=== PATIENT | female | born 1940 | race American Indian/Alaskan Native ===

== ENCOUNTER 2019-05-01 12:55 | Inpatient (IN) | payer MEDICARE ==
[2019-05-01] MEDS ORDERED: GENTAMICIN 80 MG in NACL 0.9% 100 ML IV SCH (14:30)
--- NOTE | 2019-05-01 14:30 | Anesthesia Day of Surgery ---
Anesthesia Day of Surgery - Day of Surgery Patient Examined: Yes Patient H&P Reviewed: Yes Patient is NPO: Yes
--- NOTE | 2019-05-01 14:32 | Anesthesia Consultation ---
Anesthesia Consult and Med Hx Date of service: 05/01/19 - Airway Anesthetic Teeth Evaluation: Edentulous ROM Head & Neck: Adequate Mental/Hyoid Distance: Adequate Mallampati Class: Class II Intubation Access Assessment: Probably Good - Pre-Operative Health Status ASA Pre-Surgery Classification: ASA3 Proposed Anesthetic Plan: MAC - Pulmonary Hx Asthma: Yes - Cardiovascular System Hx Hypertension: Yes - Central Nervous System Hx Psychiatric Problems: Yes (Depression/Alzheimers/Dementia) - Endocrine Hx Liver Disease: Yes (Increased AST) - Hematic Hx Anemia: Yes - Additional Comments Anesthesia Medical History Comments: Albumin 2.3. Hypokalemia 2.7 [id number]. Non-ambulatory
[2019-05-01] MEDS ORDERED: NACL 0.9% 1000 ML 1,000 ML IV SCH (15:00)
[2019-05-01] MEDS ORDERED: CLEOCIN 600 MG/50 mL 600 MG/50 ML BAG IV NR (15:00)
[2019-05-01] MEDS ORDERED: GENTAMICIN/NS 100 MG/100 ML 100 MG/100 ML BAG IV NR (15:00)
[2019-05-01 15:56] LABS: Basophils # (Auto) 0.1 K/mm3 (0.0-0.1); Basophils % (Auto) 0.7 % (0.0-1.8); Eosinophils % (Auto) 0.4 % (0.0-4.3); Hematocrit 39.4 % (30.3-42.9); Hemoglobin 12.7 gm/dl (10.1-14.3); Lymphocytes # (Auto) 1.8 K/mm3 (1.2-5.4); Lymphocytes % (Auto) 16.7 % (13.4-35.0); Mean Corpuscular HGB Conc 32 % (30-34); Mean Corpuscular Volume 88 fl (79-97); Monocytes # (Auto) 0.9 K/mm3 (0.0-0.8); Monocytes % (Auto) 8.5 % (0.0-7.3); Platelet Count 239 K/mm3 (140-440); Red Blood Count 4.46 M/mm3 (3.65-5.03); Red Cell Distribution Width 18.2 % (13.2-15.2)
[2019-05-01] MEDS: D5/0.45NS 1,000 ML IV SCH ×2 (15:56→20:05)
[2019-05-01 16:10] LABS: Partial Thromboplastin Time 25.4 Sec. (24.2-36.6)
[2019-05-01 16:34] LABS: INR 1.38 (0.87-1.13)
--- NOTE | 2019-05-01 16:34 | Emergency Department Report ---
ED General Adult HPI - General Chief complaint: Laceration/Recheck/Suture Source: patient Mode of arrival: Stretcher Limitations: No Limitations - History of Present Illness Initial comments: 78-year-old female with a past with a history of vascular dementia, elevated cholesterol, hypertension, asthma, and hyperlipidemia presents to the hospital from the endoscopy lab for hypokalemia and needing PEG tube placement. Patient was sent by custodial for PEG tube placement. Patient had repeat procedure lasted revealing a potassium of 2.7 and sodium 166. Procedure was aborted and patient was sent to the ER for hypokalemia. Patient is nonverbal and does not follow commands and is unable to provide any additional history of present illness. There is a DO NOT RESUSCITATE noted on custodial face sheet however advanced directive paperwork is not included. PEG being placed because pt is not eating. Severity scale (0 -10): 0 - Related Data Allergies Allergy/AdvReac Type Severity Reaction Status Date / Time No Known Allergies Allergy Verified 05/01/19 14:31 ED Review of Systems ROS: Stated complaint: Other details as noted in HPI Comment: All other systems reviewed and negative ED Past Medical Hx - Past Medical History Previous Medical History?: Yes Hx Hypertension: Yes Hx Liver Disease: Yes (Increased AST) Hx Arthritis: Yes (osteoarthritis) Hx Psychiatric Treatment: (MDD) Hx Asthma: Yes Additional medical history: Encephalopathy, High cholesterol, Anemia, Vascular Dementia, Scoliosis - Surgical History Past Surgical History?: No - Social History Smoking Status: Never Smoker Substance Use Type: None ED Physical Exam - General Limitations: No Limitations - Other Other exam information: General: No acute distress Head: Atraumatic Eyes: Normal appearance, Pupils equal and reactive to light, extraocular movements intact ENT: dry mucous membranes Neck: Normal appearance, no posterior or midline tenderness, no meningismus Chest: Clear to auscultation bilaterally, no wheezes, rales, or crackles CV: Regular rate and rhythm Abdomen: soft, normal bowel sounds, nontender, nondistended, no rebound or guarding Back: Nontender Extremity: Normal inspection, full range of motion, nontender Neuro: Alert equal hand special warfare operator and leg strength. sensation grossly intact Skin: No rash, redness, warmth ED Course Vital Signs 05/01/19 05/01/19 13:45 15:07 Temperature 97.6 F 97.6 F Pulse Rate 91 H 91 H Respiratory 20 Rate Blood Pressure 128/75 128/75 O2 Sat by Pulse 98 98 Oximetry ED Medical Decision Making - Lab Data Result diagrams: 05/01/19 15:43 05/01/19 15:43 Lab Results 05/01/19 05/01/19 05/01/19 Range/Units 14:42 15:43 15:43 WBC 10.8 (4.5-11.0) K/mm3 RBC 4.46 (3.65-5.03) M/mm3 Hgb 12.7 (10.1-14.3) gm/dl POC Hgb 12.9 (12-17) Hct 39.4 (30.3-42.9) % POC Hct 38 (38-51) MCV 88 (79-97) fl MCH 29 (28-32) pg MCHC 32 (30-34) % RDW 18.2 H (13.2-15.2) % Plt Count 239 (140-440) K/mm3 Lymph % (Auto) 16.7 (13.4-35.0) % Dare % (Auto) 8.5 H (0.0-7.3) % Eos % (Auto) 0.4 (0.0-4.3) % Baso % (Auto) 0.7 (0.0-1.8) % Lymph # 1.8 (1.2-5.4) K/mm3 Dare # 0.9 H (0.0-0.8) K/mm3 Eos # 0.0 (0.0-0.4) K/mm3 Baso # 0.1 (0.0-0.1) K/mm3 Seg Neutrophils % 73.7 H (40.0-70.0) % Seg Neutrophils # 7.9 H (1.8-7.7) K/mm3 APTT 25.4 (24.2-36.6) Sec. POC Sodium 167 H (138-146) mmol/L POC Potassium 2.7 L (3.5-4.9) POC Chloride 131 H (98-109) Sodium (137-145) mmol/L Potassium (3.6-5.0) mmol/L Chloride (98-107) mmol/L Carbon Dioxide (22-30) mmol/L Anion Gap mmol/L POC BUN 32 H (8-26) mg/dl BUN (7-17) mg/dL Creatinine (0.7-1.2) mg/dL Estimated GFR ml/min BUN/Creatinine Ratio % Glucose (65-100) mg/dL POC Glucose 100 (70-105) Calcium (8.4-10.2) mg/dL Magnesium (1.7-2.3) mg/dL 05/01/19 Range/Units 15:43 WBC (4.5-11.0) K/mm3 RBC (3.65-5.03) M/mm3 Hgb (10.1-14.3) gm/dl POC Hgb (12-17) Hct (30.3-42.9) % POC Hct (38-51) MCV (79-97) fl MCH (28-32) pg MCHC (30-34) % RDW (13.2-15.2) % Plt Count (140-440) K/mm3 Lymph % (Auto) (13.4-35.0) % Dare % (Auto) (0.0-7.3) % Eos % (Auto) (0.0-4.3) % Baso % (Auto) (0.0-1.8) % Lymph # (1.2-5.4) K/mm3 Dare # (0.0-0.8) K/mm3 Eos # (0.0-0.4) K/mm3 Baso # (0.0-0.1) K/mm3 Seg Neutrophils % (40.0-70.0) % Seg Neutrophils # (1.8-7.7) K/mm3 APTT (24.2-36.6) Sec. POC Sodium (138-146) mmol/L POC Potassium (3.5-4.9) POC Chloride (98-109) Sodium 166 H* (137-145) mmol/L Potassium 3.7 (3.6-5.0) mmol/L Chloride 123.2 H (98-107) mmol/L Carbon Dioxide 24 (22-30) mmol/L Anion Gap 23 mmol/L POC BUN (8-26) mg/dl BUN 40 H (7-17) mg/dL Creatinine 1.6 H (0.7-1.2) mg/dL Estimated GFR 38 ml/min BUN/Creatinine Ratio 25 % Glucose 104 H (65-100) mg/dL POC Glucose (70-105) Calcium 9.0 (8.4-10.2) mg/dL Magnesium 2.40 H (1.7-2.3) mg/dL - Medical Decision Making dehydration due to decreased po intake and dementia D1/2 NS ordered for hydration potassium nomral Hospitalist aware for admission - Differential Diagnosis dehydration, electrolyte abnormalities Critical Care Time: No Critical care attestation.: If time is entered above; I have spent that time in minutes in the direct care of this critically ill patient, excluding procedure time. ED Disposition Clinical Impression: Dehydration, Renal insufficiency, Advanced dementia, Encounter for PEG (percutaneous endoscopic gastrostomy) Disposition: OP ADMIT IP TO THIS HOSP Is pt being admited?: Yes Condition: Stable Time of Disposition: 16:39 (Dr bhatia/hosp)
[2019-05-02] MEDS: D5/0.45NS 1,000 ML IV SCH (00:56)
[2019-05-02] MEDS ORDERED: ZOFRAN IV PRN (02:04)
[2019-05-02] MEDS ORDERED: TYLENOL PO PRN (02:04)
[2019-05-02] MEDS ORDERED: SODIUM CHLORIDE FLUSH SYRINGE 10 ML IV PRN (02:04)
[2019-05-02] MEDS ORDERED: REGLAN IV PRN ×2 (02:04→02:15)
[2019-05-02] MEDS ORDERED: DILAUDID IV PRN (02:12)
[2019-05-02] MEDS ORDERED: PEPCID IV SCH (03:00)
[2019-05-02] MEDS ORDERED: COLACE PO PRN (05:35)
[2019-05-02] MEDS ORDERED: ATIVAN PO PRN (05:35)
--- NOTE | 2019-05-02 05:40 | Event Note ---
Date: 05/01/19 See H/p in reports Poor po intake ---pegplacement Hypernatremia DAWN
[2019-05-02] MEDS ORDERED: HYOSCYAMINE SULFATE 0.125 MG SL SCH (05:45)
[2019-05-02] MEDS ORDERED: PROAIR IH SCH (05:45)
[2019-05-02] MEDS ORDERED: PROVENTIL IH PRN (05:47)
--- NOTE | 2019-05-02 06:07 | History and Physical Report ---
CHIEF COMPLAINT: High sodium and low potassium. HISTORY OF PRESENT ILLNESS: A 78-year-old female with past medical history of vascular dementia, hyperlipidemia, hypertension, and asthma, was supposed to get a PEG tube as an outpatient. The patient was sent by longterm for PEG tube placement. The patient had potassium of 2.7 and sodium of 166 because of which the procedure was canceled and was sent to the Emergency Room for treatment of a high sodium and low potassium levels. In the ER, potassium came back to normal level of 3.7, but sodium level came at 166 and high BUN and creatinine. The patient is nonverbal. Does not follow commands. As per the family at bedside, the patient has not been eating because of vascular dementia. The patient is also do not resuscitate. No fever or chills. Main problem is poor p.o. intake and PEG tube placement. Incidental findings are hypernatremia and acute kidney injury. Otherwise, no symptoms. PAST MEDICAL HISTORY: Significant for hypertension, transaminitis, arthritis, major depression, asthma, high cholesterol levels, and vascular dementia. Also, scoliosis. PAST SURGICAL HISTORY: None. SOCIAL HISTORY: Does not smoke. Lives in a longterm [facility] near [facility]. FAMILY HISTORY: Hypertension. REVIEW OF SYSTEMS: Significant for poor p.o. intake and vascular dementia. Otherwise, review of systems negative. The patient is alert, but not oriented to time, place, and person. PHYSICAL EXAMINATION: GENERAL: Elderly female lying in bed, cooperative, alert, but not oriented. VITAL SIGNS: Temperature 98.5, pulse is 91, respirations are 16-18, sats are 98%, blood pressure is 128/75. HEENT: Unremarkable. Tongue is dry. NECK: Supple, no lymphadenopathy, no thyromegaly. LUNGS: Clear to auscultation and percussion. Good air entry. CARDIOVASCULAR: S1, S2 heard. No gallop, no murmur, no rub. Apical impulse in left fifth intercostal space and midclavicular line. ABDOMEN: Soft and benign. No hepatosplenomegaly. No guarding, no rigidity. Hernial orifices are normal. EXTREMITIES: Good pedal pulses. No pedal edema. CENTRAL NERVOUS SYSTEM: Alert, but not oriented to time and place. SKIN: Normal. NEUROLOGIC: Moves all four extremities. Sensory system normal. LABORATORY DATA: Significant for normal white count and normal hemoglobin and hematocrit. Normal platelet count. Protime is 16.6, INR is 1.38. Sodium is 167, potassium is 2.7, chloride is 131. Repeat potassium is 3.7. Repeat sodium is 166, chloride is 123, bicarbonate is 24, BUN and creatinine is 40 and 1.6. Glucose is 104. Magnesium is 2.4. No imaging studies. No EKG on the chart. ASSESSMENT AND PLAN: 1. Acute kidney injury secondary to acute tubular necrosis. IV fluids for now in the form of D5W. Nephrology consult requested. 2. Hypernatremia. D5W for now and once the sodium is nearly corrected, the patient can go for PEG tube procedure. GI consult requested. 3. PEG tube placement. GI consult requested. Dr. Bunn does procedures as outpatient, but does not do consultations, hence, consult was placed to Dr. Chen's group. 4. Asthma. Continue albuterol inhaler. 5. Arthritis. Continue Tylenol q.4 hours p.r.n. Diclofenac gel was kept on hold. 6. Constipation. Continue Colace. 7. Anemia. Continue ferrous sulfate. H and H is normal. 8. Irritable bowel syndrome. Continue Levsin 0.125 q.4 hours sublingual p.r.n. 9. Depression. Continue sertraline 25 mg daily. 10. Deep venous thrombosis prophylaxis, heparin 5000 q.12 hours. In summary, the patient has hypernatremia, had hypokalemia, which is corrected. Depression, asthma, and need for PEG tube placement because of poor p.o. intake. GI consulted for PEG tube placement when the patient is medically cleared. [facility]# [id number] FREDERIC/NTS
[2019-05-02] MEDS: LEVSIN SL SL SCH ×4 (06:18→18:57)
[2019-05-02] MEDS: PEPCID IV SCH ×3 (06:18→22:47)
[2019-05-02] MEDS: D5W 1,000 ML IV SCH (06:19)
[2019-05-02] MEDS: PROVENTIL IH SCH ×3 (08:45→17:54)
--- NOTE | 2019-05-02 09:04 | Event Note ---
Date: 05/02/19 called for G tube consult, reviewed chart, this is Dr. Bunn's established outpatient who was scheduled for G tube placement here yesterday; therefore recommend consulting him as he does have privileges. I tried calling his cell but it went to , I spoke with the apartment rental clerk, Beth, and she will contact his office to put in the consult
[2019-05-02] MEDS: ROCALTROL PO SCH (10:30)
[2019-05-02] MEDS: ZOLOFT PO SCH (10:30)
[2019-05-02] MEDS: SODIUM CHLORIDE FLUSH SYRINGE 10 ML IV SCH (10:30)
[2019-05-02] MEDS: OSCAL PO SCH (10:30)
[2019-05-02] MEDS: HEPARIN SUB-Q SCH ×2 (10:31→22:48)
--- NOTE | 2019-05-02 10:37 | Consultation ---
History of Present Illness - Reason for Consult Consult date: 05/02/19 acute renal failure, hypernatremia, hypokalemia - History of Present Illness The patient is a 78 YO female with history significant for Hypertension, HLD, Asthma, Dementia and [place] resident who was admitted from the endoscopy lab with electrolyte abnormalities. Patient was not able to provide any history at this time and some history was provided by her niece at the bedside. Patient came to the hospital from [place] for PEG tube placement. labs showed potassium of 2.7 and sodium 166. Procedure was aborted and patient was sent to the ER for further evalaution. per niece patient is not eating well. Creatinine was 1.6 ye sterday. Nephrology was consulted for further evaluation. Past History Past Medical History: diabetes, hypertension, hyperlipidemia, other (Dementia) Medications and Allergies Allergies Allergy/AdvReac Type Severity Reaction Status Date / Time No Known Allergies Allergy Verified 05/01/19 14:31 Home Medications Medication Instructions Recorded Confirmed Last Taken Type Albuterol Sulfate [Proventil Hfa] 6.7 gm IH Q4H 05/01/19 05/01/19 04/30/19 History AtorvaSTATin [Lipitor] 20 mg PO QHS 05/01/19 05/01/19 04/30/19 History Bisacodyl 10 mg RC Q8H 05/01/19 05/01/19 04/30/19 History Calcitriol [Rocaltrol] 0.25 mcg PO QDAY 05/01/19 05/01/19 04/30/19 History Calcium Carbonate [Calcium 1,000 mg PO QDAY 05/01/19 05/01/19 04/30/19 History Carbonate 500MG TAB] Diclofenac 1% [Diclofenac 1% 20 applic TP Q6H 05/01/19 05/01/19 04/30/19 History topical gel] Docusate Sodium [Colace] 100 mg PO BID PRN 05/01/19 05/01/19 04/30/19 History Ferrous Sulfate [Iron 325 MG] 325 mg PO QDAY 05/01/19 05/01/19 04/30/19 History Hyoscyamine Sulfate 0.125 mg SL Q4H 05/01/19 05/01/19 04/30/19 History LORazepam [Ativan] 0.5 mg PO Q4H PRN 05/01/19 05/01/19 04/30/19 History Mirtazapine [Remeron 15mg TAB] 15 mg PO QHS 05/01/19 05/01/19 04/30/19 History Morphine [Morphine ORAL SOLN 10 10 mg PO Q2H 05/01/19 05/01/19 04/30/19 History MG/5 ML] Promethazine [Phenergan] 25 mg PO Q4H 05/01/19 05/01/19 04/30/19 History Sertraline [Zoloft] 25 mg PO QDAY 05/01/19 05/01/19 04/30/19 History traMADol [Ultram] 50 mg PO QHS 05/01/19 05/01/19 04/30/19 History Active Meds: Active Medications Acetaminophen (Tylenol) 650 mg PO Q4H PRN PRN Reason: Pain MILD(1-3)/Fever >100.5/DICK Albuterol (Proventil) 2.5 mg IH Q4HRT COUNTS INCLUDE 234 BEDS AT THE [facility] Last Admin: 05/02/19 08:45 Dose: Not Given Documented by: Albuterol (Proventil) 2.5 mg IH Q4HRT PRN PRN Reason: Shortness Of Breath Calcitriol (Rocaltrol) 0.25 mcg PO QDAY COUNTS INCLUDE 234 BEDS AT THE [facility] Calcium Carbonate/Glycine (Oscal) 1,250 mg PO QDAY COUNTS INCLUDE 234 BEDS AT THE [facility] Docusate Sodium (Colace) 100 mg PO BID PRN PRN Reason: Constipation Famotidine (Pepcid) 10 mg IV BID COUNTS INCLUDE 234 BEDS AT THE [facility] Last Admin: 05/02/19 10:31 Dose: 10 mg Documented by: Ferrous Sulfate (Feosol) 325 mg PO QDAY COUNTS INCLUDE 234 BEDS AT THE [facility] Heparin Sodium (Porcine) (Heparin) 5,000 unit SUB-Q Q12HR COUNTS INCLUDE 234 BEDS AT THE [facility] Hydromorphone HCl (Dilaudid) 0.5 mg IV Q3H PRN PRN Reason: Pain , Severe (7-10) Hyoscyamine (Levsin Sl) 0.125 mg SL Q4H COUNTS INCLUDE 234 BEDS AT THE [facility] Last Admin: 05/02/19 06:18 Dose: 0.125 mg Documented by: Dextrose (D5w) 1,000 mls @ 125 mls/hr IV DIRECT COUNTS INCLUDE 234 BEDS AT THE [facility] Last Admin: 05/02/19 06:19 Dose: 125 mls/hr Documented by: Lorazepam (Ativan) 0.5 mg PO Q4H PRN PRN Reason: Anxiety Metoclopramide HCl (Reglan) 5 mg IV Q6H PRN PRN Reason: Nausea And Vomiting Mirtazapine (Remeron) 15 mg PO QHS ANAI Ondansetron HCl (Zofran) 4 mg IV Q8H PRN PRN Reason: Nausea And Vomiting Pneumococcal Polyvalent Vaccine (Pneumovax 23) 0.5 ml IM .ONCE ONE Stop: 05/02/19 12:01 Sertraline HCl (Zoloft) 25 mg PO QDAY COUNTS INCLUDE 234 BEDS AT THE [facility] Sodium Chloride (Sodium Chloride Flush Syringe 10 Ml) 10 ml IV BID ANAI Sodium Chloride (Sodium Chloride Flush Syringe 10 Ml) 10 ml IV PRN PRN PRN Reason: LINE FLUSH Tramadol HCl (Ultram) 50 mg PO QHS COUNTS INCLUDE 234 BEDS AT THE [facility] Review of Systems ROS unobtainable: due to mental status Exam - Vital Signs Vital signs: Vital Signs Temp Pulse Resp BP Pulse Ox 97.6 F 98 H 20 117/76 99 05/01/19 13:45 05/01/19 13:45 05/01/19 13:45 05/01/19 13:45 05/01/19 13:45 - General Appearance General appearance: well-developed, appears stated age, other (no distress) EENT: ATNC, PERRL, mucous membranes dry Neck: Present: trachea midline Respiratory: Clear to Ascultation Heart: regular, S1S2, no murmurs Gastrointestinal: Present: normoactive bowel sounds. Absent: tenderness, distended Integumentary: no rash, warm and dry Neurologic: other (non-verbal, not following any command) Musculoskeletal: Present: other (no edema) Results - Lab Results 05/01/19 15:43 05/02/19 06:08 Most recent lab results Calcium 8.0 mg/dL (8.4-10.2) L 05/02/19 06:08 Magnesium 2.40 mg/dL (1.7-2.3) H 05/01/19 15:43 - Image Kidney/bladder ultrasound: pending Assessment and Plan 1. Acute kidney injury: Vasomotor DAWN in the setting of volume depletion. Urine studies and Renal US ordered. Continue IV fluids. Renal function is improving. Monitor renal function. Avoid nephrotoxic agents. Meds dosage based on GFR. 2. FEN: Hypernatremia, 2/2 dehydration. Continue IV D5W. Replete K. Monitor lytes. 3. Adult failure to thrive: PEG tube placement. GI consulted. 4. Dementia. 5. Hypertension.
[2019-05-02] MEDS ORDERED: PNEUMOVAX 23 IM ONE (12:00)
[2019-05-02] MEDS: KCL 10MEQ/100ML 10 MEQ/100 ML BAG IV SCH ×4 (12:56→16:00)
--- NOTE | 2019-05-02 14:04 | Ultrasound Report ---
ULTRASOUND RENAL INDICATION: Acute renal failure.. COMPARISON: No relevant prior imaging study available. FINDINGS: RIGHT KIDNEY: Size: 10.5 cm. Echogenicity: Normal. Cortical thickness: Normal. Stones: Small intrarenal calculus is suspected. Hydronephrosis: None. Cyst or mass: None. LEFT KIDNEY: Size: 8.1 cm. Echogenicity: Normal. Cortical thickness: Normal. Stones: None. Hydronephrosis: None. Cyst or mass: None. Urinary Bladder: No significant abnormality. Free Fluid: None. Additional Findings: None. IMPRESSION 1. No acute sonographic abnormality of the kidneys. 2. Suspected right nephrolithiasis. Signer Name: Armani Parks MD Signed: 05/02/2019 2:00 PM Workstation Name: [id number]
[2019-05-02] MEDS: FEOSOL PO SCH (17:14)
--- NOTE | 2019-05-02 20:31 | Progress Note ---
Assessment and Plan - Acute kidney injury: Vasomotor DAWN in the setting of volume depletion. Urine studies and Renal US ordered. Continue IV fluids. Renal function is improving. Monitor renal function. Avoid nephrotoxic agents. Meds dosage based on GFR. -Hypernatremia: Hypernatremia, 2/2 dehydration. Continue IV D5W. Replete K. Monitor lytes. - Hypokalemia Replete and recheck - Advanced dementia Fall precautions Optimize nursing care - Constipation Colace and lactulose - Severe Oropharyngeal dysphagia for PEG tube placement - Adult failure to thrive: PEG tube placement. GI consulted. - Irritable bowel syndrome Continue Levsin - Depression Continue with sertraline -DVT prophylaxis and GI with Pepcid With heparin Subjective Date of service: 05/02/19 Principal diagnosis: acute renal failure, failure to thrive from senna debility, hypokalemia Interval history: Patient lying quietly in bed in no distress. Contracted individual extremities. none verbal. Objective - Exam Narrative Exam: Constitutional: Old frail lady with complex [place] lower extremities predominantly. Nonpalpable. Said not to have been eating Well-nourished well-developed. In no distress Head: Normocephalic atraumatic Eyes: Pupils are equal round and reactive to light Nose: No enlarged turbinates, no septal deviation. Mouth: Moist mucous membranes. Neck: Supple no thyromegaly. No bruit. No JVD Heart: Regular rate and rhythm, S1-S2 normal. No rubs murmurs or gallop Lungs: Clear to auscultation bilaterally. no rales or rhonchi Abdomen: Soft, nontender. Bowel sound are present. Extremities: No edema, no cyanosis, no clubbing. Neuro: Alert oriented Oriented x3. No focal sensory or motor deficit. Skin: No rashes or hyperpigmented spots Musculoskeletal system: No joint pain or swelling Hematological: No petechia or subcutanous hemorrhages. Immunological: No multiple septic spots on the skin Lymphatic: No generalized lymphadenopathy Psychiatry: Euthymic. Calm. - Constitutional Vitals: Vital Signs - 12hr 05/02/19 05/02/19 14:16 16:31 Temperature 98.8 F Pulse Rate 80 Respiratory 18 Rate Blood Pressure 124/57 O2 Sat by Pulse 97 98 Oximetry - Labs CBC & Chem 7: 05/01/19 15:43 05/02/19 06:08 Labs: Abnormal lab results 05/02/19 Range/Units 06:08 Sodium 158 H (137-145) mmol/L Potassium 3.0 L (3.6-5.0) mmol/L Chloride 121.5 H (98-107) mmol/L BUN 27 H (7-17) mg/dL Glucose 141 H (65-100) mg/dL Calcium 8.0 L (8.4-10.2) mg/dL
[2019-05-02] MEDS: PULMICORT IH SCH (21:00)
[2019-05-02] MEDS: BROVANA NEBU IH SCH (21:00)
[2019-05-02 21:35] LABS: Creatinine,Urine 80.8 mg/dL (0.1-20.0)
[2019-05-02 21:39] LABS: Bacteria,Urine 4+ /HPF (Negative); Bilirubin,Urine NEG (Negative); Blood,Urine MOD (Negative); Color,Urine Amber (Yellow); Mucus,Urine 2+ /HPF; Sperm,Urine 1+ /HPF (NP)
[2019-05-02] MEDS: ULTRAM PO SCH (22:48)
[2019-05-02] MEDS: REMERON PO SCH (22:48)
[2019-05-03 03:04] LABS: Basophils % (Auto) 0.4 % (0.0-1.8); Eosinophils # (Auto) 0.1 K/mm3 (0.0-0.4); Eosinophils % (Auto) 1.5 % (0.0-4.3); Hematocrit 31.9 % (30.3-42.9); Hemoglobin 10.3 gm/dl (10.1-14.3); Lymphocytes # (Auto) 2.2 K/mm3 (1.2-5.4); Mean Corpuscular HGB Conc 32 % (30-34); Mean Corpuscular Volume 86 fl (79-97); Monocytes % (Auto) 11.3 % (0.0-7.3); Platelet Count 167 K/mm3 (140-440); Red Cell Distribution Width 18.1 % (13.2-15.2)
[2019-05-03 03:29] LABS: Alanine Aminotransferase 19 units/L (7-56); Albumin 2.7 g/dL (3.9-5); BUN/Creatinine Ratio 15; Blood Urea Nitrogen 15 mg/dL (7-17); Calcium 8.6 mg/dL (8.4-10.2); Hemolysis Index 2
--- NOTE | 2019-05-03 07:36 | Progress Note ---
Assessment and Plan 1. Acute kidney injury: Vasomotor DAWN in the setting of volume depletion. Renal US was negative for hydro. Continue IV fluids. Renal function is improving. Monitor renal function. Avoid nephrotoxic agents. Meds dosage based on GFR. 2. FEN: Hypernatremia, 2/2 dehydration. Continue IV D5W, improving. Replete K and Phos. Monitor lytes. 3. Adult failure to thrive: GI consulted. 4. Dementia. 5. Hypertension. Subjective Date of service: 05/03/19 Principal diagnosis: acute renal failure, failure to thrive from senna debility, hypokalemia Interval history: Patient was seen and examined at the bedside. Objective - Vital Signs Vital signs: Vital Signs - 12hr 05/02/19 05/02/19 05/02/19 19:53 21:05 22:48 Temperature 99.0 F Pulse Rate [ 96 H Bilateral] Respiratory 18 18 Rate Respiratory 18 Rate [Bilateral ] Respiratory Rate [denies] Blood Pressure 144/57 05/03/19 06:00 Temperature Pulse Rate [ Bilateral] Respiratory Rate Respiratory Rate [Bilateral ] Respiratory 18 Rate [denies] Blood Pressure - General Appearance General appearance: well-developed, appears stated age, other (no distress) EENT: ATNC, PERRL Neck: other (Trachea midline) Respiratory: Present: Clear to Ascultation Cardiology: regular, S1S2, no murmurs Gastrointestinal: normoactive bowel sounds, no tenderness, no distended Integumentary: no rash, warm and dry Neurologic: other (non-verbal, not following any command) Musculoskeletal: other (no edema) - Lab 05/03/19 02:27 05/03/19 02:27 Most recent lab results Calcium 8.6 mg/dL (8.4-10.2) 05/03/19 02:27 Phosphorus 1.80 mg/dL (2.5-4.5) L 05/03/19 02:27 Magnesium 2.40 mg/dL (1.7-2.3) H 05/01/19 15:43 80.8 mg/dL (0.1-20.0) H 05/02/19 21:00 115 mmol/L 05/02/19 21:00 Medications & Allergies - Medications Allergies/Adverse Reactions: Allergies No Known Allergies Allergy (Verified 05/01/19 14:31) Home Medications: Home Medications Medication Instructions Recorded Confirmed Last Taken Type Albuterol Sulfate [Proventil Hfa] 6.7 gm IH Q4H 05/01/19 05/01/19 04/30/19 History AtorvaSTATin [Lipitor] 20 mg PO QHS 05/01/19 05/01/19 04/30/19 History Bisacodyl 10 mg RC Q8H 05/01/19 05/01/19 04/30/19 History Calcitriol [Rocaltrol] 0.25 mcg PO QDAY 05/01/19 05/01/19 04/30/19 History Calcium Carbonate [Calcium 1,000 mg PO QDAY 05/01/19 05/01/19 04/30/19 History Carbonate 500MG TAB] Diclofenac 1% [Diclofenac 1% 20 applic TP Q6H 05/01/19 05/01/19 04/30/19 History topical gel] Docusate Sodium [Colace] 100 mg PO BID PRN 05/01/19 05/01/19 04/30/19 History Ferrous Sulfate [Iron 325 MG] 325 mg PO QDAY 05/01/19 05/01/19 04/30/19 History Hyoscyamine Sulfate 0.125 mg SL Q4H 05/01/19 05/01/19 04/30/19 History LORazepam [Ativan] 0.5 mg PO Q4H PRN 05/01/19 05/01/19 04/30/19 History Mirtazapine [Remeron 15mg TAB] 15 mg PO QHS 05/01/19 05/01/19 04/30/19 History Morphine [Morphine ORAL SOLN 10 10 mg PO Q2H 05/01/19 05/01/19 04/30/19 History MG/5 ML] Promethazine [Phenergan] 25 mg PO Q4H 05/01/19 05/01/19 04/30/19 History Sertraline [Zoloft] 25 mg PO QDAY 05/01/19 05/01/19 04/30/19 History traMADol [Ultram] 50 mg PO QHS 05/01/19 05/01/19 04/30/19 History Active Medications: Generic Name Dose Route Start Last Admin Trade Name Freq PRN Reason Stop Dose Admin Acetaminophen 650 mg 05/02/19 02:04 Tylenol PO Q4H PRN Pain MILD(1-3)/Fever >100.5/DICK Albuterol 2.5 mg 05/02/19 05:47 Proventil IH Q4HRT PRN Shortness Of Breath Arformoterol Tartrate 15 mcg 05/02/19 20:00 05/02/19 21:00 Brovana Nebu IH 15 mcg Q12HRT ANAI Administration Budesonide 0.5 mg 05/02/19 20:00 05/02/19 21:00 Pulmicort IH 0.5 mg Q12HRT ANAI Administration Calcitriol 0.25 mcg 05/02/19 10:00 05/02/19 10:30 Rocaltrol PO Not Given QDAY ANAI Calcium Carbonate/Glycine 1,250 mg 05/02/19 10:00 05/02/19 10:30 Oscal PO Not Given QDAY [facility] Docusate Sodium 100 mg 05/02/19 05:35 Colace PO BID PRN Constipation Famotidine 10 mg 05/02/19 03:00 05/02/19 22:47 Pepcid IV 10 mg BID ANAI Administration Ferrous Sulfate 325 mg 05/02/19 10:00 05/02/19 17:14 Feosol PO Not Given QDAY ANAI Heparin Sodium (Porcine) 5,000 unit 05/02/19 10:00 05/02/19 22:48 Heparin SUB-Q 5,000 unit Q12HR ANAI Administration Hydromorphone HCl 0.5 mg 05/02/19 02:12 Dilaudid IV Q3H PRN Pain , Severe (7-10) Hyoscyamine 0.125 mg 05/02/19 06:00 05/02/19 18:57 Levsin Sl SL Not Given Q4H [facility] Dextrose 1,000 mls @ 125 mls/hr 05/02/19 03:00 05/02/19 06:19 D5w IV 125 mls/hr DIRECT ANAI Administration Lorazepam 0.5 mg 05/02/19 05:35 Ativan PO Q4H PRN Anxiety Metoclopramide HCl 5 mg 05/02/19 02:15 Reglan IV Q6H PRN Nausea And Vomiting Mirtazapine 15 mg 05/02/19 22:00 05/02/19 22:48 Remeron PO 15 mg QHS ANAI Administration Ondansetron HCl 4 mg 05/02/19 02:04 Zofran IV Q8H PRN Nausea And Vomiting Sertraline HCl 25 mg 05/02/19 10:00 05/02/19 10:30 Zoloft PO Not Given QDAY ANAI Sodium Chloride 10 ml 05/02/19 10:00 05/02/19 10:30 Sodium Chloride Flush Syringe 10 Ml IV 10 ml BID ANAI Administration Sodium Chloride 10 ml 05/02/19 02:04 Sodium Chloride Flush Syringe 10 Ml IV PRN PRN LINE FLUSH Tramadol HCl 50 mg 05/02/19 22:00 05/02/19 22:48 Ultram PO 50 mg QHS ANAI Administration
[2019-05-03] MEDS ORDERED: KPHOS IV ONE ×2 (07:48→09:00)
[2019-05-03] MEDS ORDERED: D5W IV ONE ×2 (07:48→09:00)
[2019-05-03] MEDS: PULMICORT IH SCH ×2 (08:54→20:48)
[2019-05-03] MEDS: BROVANA NEBU IH SCH ×2 (08:54→20:48)
[2019-05-03] MEDS: ZOLOFT PO SCH (09:55)
[2019-05-03] MEDS: PEPCID IV SCH ×2 (09:55→21:43)
[2019-05-03] MEDS: FEOSOL PO SCH (09:55)
[2019-05-03] MEDS: ROCALTROL PO SCH (09:55)
[2019-05-03] MEDS: HEPARIN SUB-Q SCH ×2 (09:56→21:45)
[2019-05-03] MEDS: SODIUM CHLORIDE FLUSH SYRINGE 10 ML IV SCH ×2 (09:57→21:48)
[2019-05-03] MEDS: OSCAL PO SCH (10:00)
[2019-05-03] MEDS: LEVSIN SL SL SCH ×4 (10:00→21:55)
--- NOTE | 2019-05-03 16:28 | Progress Note ---
Assessment and Plan - Acute kidney injury: Vasomotor DAWN in the setting of volume depletion. Urine studies and Renal US ordered. Continue IV fluids. Renal function is improving. Monitor renal function. Avoid nephrotoxic agents. Meds dosage based on GFR. -Hypernatremia: - imrpoving Hypernatremia, 2/2 dehydration. Continue IV D5W. - Hypokalemia Replete further and recheck - Advanced dementia Fall precautions Optimize nursing care - Constipation Colace and lactulose - Severe Oropharyngeal dysphagia for PEG tube placement - Adult failure to thrive: PEG tube placement. GI consulted. - Irritable bowel syndrome Continue Levsin - Depression Continue with sertraline -DVT prophylaxis and GI with Pepcid With heparin Subjective Date of service: 05/03/19 Principal diagnosis: acute renal failure, failure to thrive from senna debility, hypokalemia Interval history: Patient lying quietly in bed in no distress. Contracted individual extremities. none verbal. Objective - Exam Narrative Exam: Constitutional: Old frail lady with contractures of the extremities, lower extremities predominantly. Nonverbal . Said not to have been eating Well-nourished well-developed. In no distress Head: Normocephalic atraumatic Eyes: Pupils are equal round and reactive to light Nose: No enlarged turbinates, no septal deviation. Mouth: Moist mucous membranes. Neck: Supple no thyromegaly. No bruit. No JVD Heart: Regular rate and rhythm, S1-S2 normal. No rubs murmurs or gallop Lungs: Clear to auscultation bilaterally. no rales or rhonchi Abdomen: Soft, nontender. Bowel sound are present. Extremities: contractures, no cyanosis, no clubbing. Neuro: None verbal . Skin: No rashes or hyperpigmented spots Musculoskeletal system: No joint pain or swelling Hematological: No petechia or subcutanous hemorrhages. Immunological: No multiple septic spots on the skin Lymphatic: No generalized lymphadenopathy Psychiatry: Euthymic. Calm. - Constitutional Vitals: Vital Signs - 12hr 05/03/19 05/03/19 05/03/19 06:00 07:42 08:00 Temperature 99.7 F H Pulse Rate 96 H Pulse Rate [ Bilateral] Pulse Rate [ 96 H Right Brachial] Respiratory 20 Rate Respiratory Rate [Bilateral ] Respiratory 18 Rate [denies] Blood Pressure 149/65 O2 Sat by Pulse 93 96 Oximetry 05/03/19 05/03/19 08:50 14:29 Temperature 98.5 F Pulse Rate Pulse Rate [ 88 Bilateral] Pulse Rate [ Right Brachial] Respiratory 20 Rate Respiratory 18 Rate [Bilateral ] Respiratory Rate [denies] Blood Pressure 105/60 O2 Sat by Pulse Oximetry - Labs CBC & Chem 7: 05/03/19 02:27 05/03/19 02:27 Labs: Abnormal lab results 05/02/19 05/02/19 05/03/19 Range/Units 21:00 21:00 02:27 RDW (13.2-15.2) % [place] % (Auto) (0.0-7.3) % [place] # (0.0-0.8) K/mm3 Sodium 151 H (137-145) mmol/L Potassium 3.0 L (3.6-5.0) mmol/L Chloride 113.2 H (98-107) mmol/L Glucose 113 H (65-100) mg/dL Phosphorus 1.80 L (2.5-4.5) mg/dL Alkaline Phosphatase 163 H (35-129) units/L Albumin 2.7 L (3.9-5) g/dL Urine WBC (Auto) 103.0 H (0.0-6.0) /HPF U Epithel Cells (Auto) 27.0 H (0-13.0) /HPF Urine Creatinine 80.8 H (0.1-20.0) mg/dL 05/03/19 Range/Units 02:27 RDW 18.1 H (13.2-15.2) % [place] % (Auto) 11.3 H (0.0-7.3) % [place] # 1.0 H (0.0-0.8) K/mm3 Sodium (137-145) mmol/L Potassium (3.6-5.0) mmol/L Chloride (98-107) mmol/L Glucose (65-100) mg/dL Phosphorus (2.5-4.5) mg/dL Alkaline Phosphatase (35-129) units/L Albumin (3.9-5) g/dL Urine WBC (Auto) (0.0-6.0) /HPF U Epithel Cells (Auto) (0-13.0) /HPF Urine Creatinine (0.1-20.0) mg/dL
[2019-05-03] MEDS ORDERED: KPHOS 15 MMOL in NACL 0.9% 250ML 250 ML IV ONE (17:29)
[2019-05-03] MEDS: KCL 10MEQ/100ML 10 MEQ/100 ML BAG IV SCH ×3 (20:55→23:49)
[2019-05-03] MEDS: REMERON PO SCH (21:43)
[2019-05-03] MEDS: ULTRAM PO SCH (21:44)
[2019-05-04] MEDS: LEVSIN SL SL SCH ×8 (00:27→21:17)
[2019-05-04] MEDS: SODIUM CHLORIDE FLUSH SYRINGE 10 ML IV SCH ×3 (00:39→21:17)
[2019-05-04] MEDS: KCL 10MEQ/100ML 10 MEQ/100 ML BAG IV SCH (01:22)
[2019-05-04 05:23] LABS: Basophils # (Auto) 0.1 K/mm3 (0.0-0.1); Basophils % (Auto) 0.8 % (0.0-1.8); Eosinophils # (Auto) 0.2 K/mm3 (0.0-0.4); Eosinophils % (Auto) 1.9 % (0.0-4.3); Hematocrit 29.8 % (30.3-42.9); Hemoglobin 9.7 gm/dl (10.1-14.3); Lymphocytes # (Auto) 2.1 K/mm3 (1.2-5.4); Lymphocytes % (Auto) 24.1 % (13.4-35.0); Mean Corpuscular HGB Conc 33 % (30-34); Mean Corpuscular Volume 86 fl (79-97); Monocytes # (Auto) 0.9 K/mm3 (0.0-0.8); Monocytes % (Auto) 10.8 % (0.0-7.3); Red Blood Count 3.46 M/mm3 (3.65-5.03); Red Cell Distribution Width 18.1 % (13.2-15.2)
[2019-05-04 05:24] LABS: Platelet Count 122 K/mm3 (140-440)
[2019-05-04 05:47] LABS: Alanine Aminotransferase 20 units/L (7-56); Albumin 2.4 g/dL (3.9-5); BUN/Creatinine Ratio 9; Blood Urea Nitrogen 9 mg/dL (7-17); Calcium 6.9 mg/dL (8.4-10.2); Hemolysis Index 3
[2019-05-04] MEDS: BROVANA NEBU IH SCH ×2 (08:13→20:30)
[2019-05-04] MEDS: PULMICORT IH SCH ×2 (08:13→20:30)
[2019-05-04] MEDS: FEOSOL PO SCH (09:03)
[2019-05-04] MEDS: PEPCID IV SCH ×2 (09:03→21:17)
[2019-05-04] MEDS: ZOLOFT PO SCH (09:03)
[2019-05-04] MEDS: HEPARIN SUB-Q SCH ×2 (09:03→21:17)
[2019-05-04] MEDS: ROCALTROL PO SCH (09:04)
[2019-05-04] MEDS: OSCAL PO SCH (09:06)
[2019-05-04] MEDS: D5W 1,000 ML IV SCH ×2 (09:24→16:52)
--- NOTE | 2019-05-04 10:10 | Progress Note ---
Assessment and Plan Assessment and plan: PER ED NOTE "78-year-old female with a past with a history of vascular dementia, elevated cholesterol, hypertension, asthma, and hyperlipidemia presents to the hospital from the endoscopy lab for hypokalemia and needing PEG tube placement. Patient was sent by group home for PEG tube placement. Patient had repeat procedure lasted revealing a potassium of 2.7 and sodium 166. Procedure was aborted and patient was sent to the ER for hypokalemia. Patient is nonverbal and does not follow commands and is unable to provide any additional history of present illness. There is a DO NOT RESUSCITATE noted on group home face sheet however advanced directive paperwork is not included. PEG being placed because pt is not eating." - Acute kidney injury: Vasomotor DAWN in the setting of volume depletion. Urine studies and Renal US ordered. Continue IV fluids. Renal function is improving. Monitor renal function. Avoid nephrotoxic agents. Meds dosage based on GFR. -Hypernatremia: - imrpoving Hypernatremia, 2/2 dehydration. Continue IV D5W. - Hypokalemia Replete further and recheck RESOLVED - Advanced dementia Fall precautions Optimize nursing care - Constipation Colace and lactulose - Severe Oropharyngeal dysphagia for PEG tube placement Discussed with GI team, could not reach primary GI team, per the other GI team, plan is for outpatient PEG. Will proceed with Dobhoff and discharge to SNF Called SNF TEAM (glazing department supervisor called) they are willing to accept the patient with this plan anticipate discharge today - Adult failure to thrive: PEG tube placement. GI consulted. - Irritable bowel syndrome Continue Levsin - Depression Continue with sertraline -DVT prophylaxis and GI with Pepcid With heparin History Interval history: patient lying quietly in bed in no distress. Contracted individual extremities. none verbal. Hospitalist Physical - Physical exam Narrative exam: Constitutional: Old frail lady with contractures of the extremities, lower extremities predominantly. Nonverbal . Said not to have been eating Well-nourished well-developed. In no distress Head: Normocephalic atraumatic Eyes: Pupils are equal round and reactive to light Nose: No enlarged turbinates, no septal deviation. Mouth: Moist mucous membranes. Neck: Supple no thyromegaly. No bruit. No JVD Heart: Regular rate and rhythm, S1-S2 normal. No rubs murmurs or gallop Lungs: Clear to auscultation bilaterally. no rales or rhonchi Abdomen: Soft, nontender. Bowel sound are present. Extremities: contractures, no cyanosis, no clubbing. edema bilateral extremities Neuro: None verbal . Skin: No rashes or hyperpigmented spots Musculoskeletal system: No joint pain or swelling Hematological: No petechia or subcutanous hemorrhages. Immunological: No multiple septic spots on the skin Lymphatic: No generalized lymphadenopathy Psychiatry: Euthymic. Calm. - Constitutional Vitals: Temp Pulse Resp BP Pulse Ox 98.8 F 83 18 113/54 96 05/04/19 07:22 05/04/19 08:26 05/04/19 08:26 05/04/19 07:22 05/04/19 07:32 Results - Labs CBC & Chem 7: 05/04/19 04:46 05/04/19 04:46 Labs: Laboratory Last Values WBC 8.7 K/mm3 (4.5-11.0) 05/04/19 04:46 RBC 3.46 M/mm3 (3.65-5.03) L 05/04/19 04:46 Hgb 9.7 gm/dl (10.1-14.3) L 05/04/19 04:46 POC Hgb 12.9 (12-17) 05/01/19 14:42 Hct 29.8 % (30.3-42.9) L 05/04/19 04:46 POC Hct 38 (38-51) 05/01/19 14:42 MCV 86 fl (79-97) 05/04/19 04:46 MCH 28 pg (28-32) 05/04/19 04:46 MCHC 33 % (30-34) 05/04/19 04:46 RDW 18.1 % (13.2-15.2) H 05/04/19 04:46 Plt Count 122 K/mm3 (140-440) L 05/04/19 04:46 Lymph % (Auto) 24.1 % (13.4-35.0) 05/04/19 04:46 [place] % (Auto) 10.8 % (0.0-7.3) H 05/04/19 04:46 Eos % (Auto) 1.9 % (0.0-4.3) 05/04/19 04:46 Baso % (Auto) 0.8 % (0.0-1.8) 05/04/19 04:46 Lymph # 2.1 K/mm3 (1.2-5.4) 05/04/19 04:46 [place] # 0.9 K/mm3 (0.0-0.8) H 05/04/19 04:46 Eos # 0.2 K/mm3 (0.0-0.4) 05/04/19 04:46 Baso # 0.1 K/mm3 (0.0-0.1) 05/04/19 04:46 Seg Neutrophils % 62.4 % (40.0-70.0) 05/04/19 04:46 Seg Neutrophils # 5.4 K/mm3 (1.8-7.7) 05/04/19 04:46 PT 16.6 Sec. (12.2-14.9) H 05/01/19 15:43 INR 1.38 (0.87-1.13) H 05/01/19 15:43 APTT 25.4 Sec. (24.2-36.6) 05/01/19 15:43 POC Sodium 167 mmol/L (138-146) H 05/01/19 14:42 POC Potassium 2.7 (3.5-4.9) L 05/01/19 14:42 POC Chloride 131 (98-109) H 05/01/19 14:42 Sodium 147 mmol/L (137-145) H 05/04/19 04:46 Potassium 3.8 mmol/L (3.6-5.0) D 05/04/19 04:46 Chloride 111.4 mmol/L (98-107) H 05/04/19 04:46 Carbon Dioxide 23 mmol/L (22-30) 05/04/19 04:46 16 mmol/L 05/04/19 04:46 POC BUN 32 mg/dl (8-26) H 05/01/19 14:42 BUN 9 mg/dL (7-17) 05/04/19 04:46 1.0 mg/dL (0.7-1.2) 05/04/19 04:46 Estimated GFR > 60 ml/min 05/04/19 04:46 9 % 05/04/19 04:46 Glucose 115 mg/dL (65-100) H 05/04/19 04:46 POC Glucose 125 (70-105) H 05/04/19 06:25 Calcium 6.9 mg/dL (8.4-10.2) L D 05/04/19 04:46 Phosphorus 3.50 mg/dL (2.5-4.5) D 05/04/19 04:46 Magnesium 2.40 mg/dL (1.7-2.3) H 05/01/19 15:43 0.50 mg/dL (0.1-1.2) 05/04/19 04:46 AST 36 units/L (5-40) 05/04/19 04:46 ALT 20 units/L (7-56) 05/04/19 04:46 160 units/L (35-129) H 05/04/19 04:46 7.1 g/dL (6.3-8.2) 05/04/19 04:46 2.4 g/dL (3.9-5) L 05/04/19 04:46 0.5 % 05/04/19 04:46 [place] (Yellow) 05/02/19 21:00 Cloudy (Clear) 05/02/19 21:00 5.0 (5.0-7.0) 05/02/19 21:00 Ur Specific [place] 1.013 (1.003-1.030) 05/02/19 21:00 30 mg/dl mg/dL (Negative) 05/02/19 21:00 Neg mg/dL (Negative) 05/02/19 21:00 Neg mg/dL (Negative) 05/02/19 21:00 Mod (Negative) 05/02/19 21:00 Pos (Negative) 05/02/19 21:00 Neg (Negative) 05/02/19 21:00 4.0 mg/dL (<2.0) 05/02/19 21:00 Ur Leukocyte Esterase Lg (Negative) 05/02/19 21:00 103.0 /HPF (0.0-6.0) H 05/02/19 21:00 5.0 /HPF (0.0-6.0) 05/02/19 21:00 U Epithel Cells (Auto) 27.0 /HPF (0-13.0) H 05/02/19 21:00 4+ /HPF (Negative) 05/02/19 21:00 2+ /HPF 05/02/19 21:00 2+ /HPF 05/02/19 21:00 Few /HPF 05/02/19 21:00 1+ /HPF (POLITICAL SCIENCE FACULTY MEMBER) 05/02/19 21:00 80.8 mg/dL (0.1-20.0) H 05/02/19 21:00 115 mmol/L 05/02/19 21:00 Active Medications - Current Medications Current Medications: Generic Name Dose Route Start Last Admin Trade Name Freq PRN Reason Stop Dose Admin Acetaminophen 650 mg 05/02/19 02:04 Tylenol PO Q4H PRN Pain MILD(1-3)/Fever >100.5/DICK Albuterol 2.5 mg 05/02/19 05:47 Proventil IH Q4HRT PRN Shortness Of Breath Arformoterol Tartrate 15 mcg 05/02/19 20:00 05/04/19 08:13 Brovana Nebu IH 15 mcg Q12HRT ANAI Administration Budesonide 0.5 mg 05/02/19 20:00 05/04/19 08:13 Pulmicort IH 0.5 mg Q12HRT ANAI Administration Calcitriol 0.25 mcg 05/02/19 10:00 05/04/19 09:04 Rocaltrol PO 0.25 mcg QDAY ANAI Administration Calcium Carbonate/Glycine 1,250 mg 05/02/19 10:00 05/04/19 09:06 Oscal PO 1,250 mg QDAY ANAI Administration Docusate Sodium 100 mg 05/02/19 05:35 Colace PO BID PRN Constipation Famotidine 10 mg 05/02/19 03:00 05/04/19 09:03 Pepcid IV 10 mg BID ANAI Administration Ferrous Sulfate 325 mg 05/02/19 10:00 05/04/19 09:03 Feosol PO 325 mg QDAY ANAI Administration Heparin Sodium (Porcine) 5,000 unit 05/02/19 10:00 05/04/19 09:03 Heparin SUB-Q 5,000 unit Q12HR ANAI Administration Hydromorphone HCl 0.5 mg 05/02/19 02:12 Dilaudid IV Q3H PRN Pain , Severe (7-10) Hyoscyamine 0.125 mg 05/02/19 06:00 05/04/19 09:04 Levsin Sl SL 0.125 mg Q4H ANAI Administration Dextrose 1,000 mls @ 125 mls/hr 05/02/19 03:00 05/04/19 09:24 D5w IV 125 mls/hr DIRECT ANAI Administration Lorazepam 0.5 mg 05/02/19 05:35 Ativan PO Q4H PRN Anxiety Metoclopramide HCl 5 mg 05/02/19 02:15 Reglan IV Q6H PRN Nausea And Vomiting Mirtazapine 15 mg 05/02/19 22:00 05/03/19 21:43 Remeron PO 15 mg QHS ANAI Administration Ondansetron HCl 4 mg 05/02/19 02:04 05/03/19 22:13 Zofran IV 4 mg Q8H PRN Administration Nausea And Vomiting Sertraline HCl 25 mg 05/02/19 10:00 05/04/19 09:03 Zoloft PO 25 mg QDAY ANAI Administration Sodium Chloride 10 ml 05/02/19 10:00 05/04/19 09:06 Sodium Chloride Flush Syringe 10 Ml IV 10 ml BID ANAI Administration Sodium Chloride 10 ml 05/02/19 02:04 Sodium Chloride Flush Syringe 10 Ml IV PRN PRN LINE FLUSH Tramadol HCl 50 mg 05/02/19 22:00 05/03/19 21:44 Ultram PO 50 mg QHS ANAI Administration Nutrition/Malnutrition Assess - Dietary Evaluation Nutrition/Malnutrition Findings: Nutrition Notes Start: 05/02/19 14:42 Freq: Status: Active Protocol: Document 05/02/19 14:42 RM (Rec: 05/02/19 14:56 RM [id number]) Nutrition Notes Need for Assessment generated from: MD Order Initial or Follow up Assessment Current Diagnosis Acute Kidney Injury, Hypertension,Hyperlipidemia Other Pertinent Diagnosis Dementia, Nonverbal Current Diet No diet ordered Labs/Tests Na 158 K 3 Pertinent Medications Reviewed Height 5 ft 2 in Weight 64 kg Usual Body Weight 85.91 kg [place] Body Weight (kg) 50.00 BMI 25.8 Weight change and time frame 25.5% wt loss X 1 month Subjective/Other Information Consulted for ONS diet. Screened for skin risk, difficulty chewing, and malnutrition. Cam 15 points. Pt from NH and planned for PEG soon. Pt and pt relative in room at time of vsit. Pt relative stated that ASSET MANAGEMENT COORDINATOR pt appetite was poor and she did not eat X 2-3 weeks. Stated UBW was 189 lbs 1 month ago. Noted orbital wasting. Burn Absent Trauma Absent Minimum of two criteria Yes Energy Intake (non-severe) <75% Estimated Energy Requirement >7 days Interpretation of Weight Loss (severe) >5% in 1 month Body Fat Depletion Mild depletion (non-severe) #1 Nutrition Diagnosis Malnutrition Etiology dementia As Evidenced by Signs and Symptoms 25.5% wt loss X 1 month, orbital wasting, pt relative statement that ASSET MANAGEMENT COORDINATOR pt did not eat X 2-3 weeks Is patient on ventilator? No Is Patient Ambulatory and/or Out of Bed No REE-([place]-confined to bed) 1288.716 Kcal/Kg value to use for calculation 21 Approximate Energy Requirements Using 1344 kcal/Kg Calculation Used for Recommendations Kcal/kg Additional Notes Protein Needs: 77-96g (1.2-1. 5g/kg) Fluid Needs: 1 ml/kcal Nutrition Intervention Change Diet Order: TF consult Goal #1 PEG placement/TF consult Anticipated Discharge Needs: Unable to determine at this time Follow-Up By: 05/06/19 Additional Comments Follow for PEG placement/TF consult
[2019-05-04] MEDS ORDERED: SODIUM BICARBONATE FEEDTUBE PRN (13:53)
[2019-05-04] MEDS ORDERED: PANCREAZE DR 10,500 UNIT FEEDTUBE PRN (13:53)
[2019-05-04] MEDS ORDERED: SIMPLE SYRUP FEEDTUBE PRN ×2 (13:53)
--- NOTE | 2019-05-04 15:30 | Event Note ---
Date: 05/04/19 Was contacted by the printer floor covering assistant regarding patient. Patient was in endo as outpatient for PEG placement with Dr. Bunn on 05/01/2019 and procedure was cancelled due to electrolyte abnormalities. Patient sent to the ED and plan was to reschedule for outpatient PEG with Dr. Bunn. Spoke with hospitalist service, Dr. Kim and if patient stable and family agreeable, patient to reschedule for outpatient PEG with Dr. Bunn.
--- NOTE | 2019-05-04 17:19 | XRay Report ---
ABDOMEN ONE VIEW FOR FEEDING TUBE PLACEMENT INDICATION / CLINICAL INFORMATION: ng tube placement dobhoff. COMPARISON: None available. FINDINGS: Tip of the feeding tube is superimposed over the expected position of the gastric body Signer Name: Joesph Garcia MD FACR Signed: 05/04/2019 5:14 PM Workstation Name: [id number]
--- NOTE | 2019-05-04 18:56 | Discharge Summary ---
Providers - Providers Date of Admission: 05/01/19 16:39 Attending physician: JULITA SIGALA MD 05/01/19 23:29 Consult to Dietitian/Nutrition [CONS] Routine Physician Instructions: Reason For Exam: Reason for Consult: Pt will be getting a peg tube. 05/02/19 05:37 Consult to Physician [CONS] Routine Comment: called office/anastacia Consulting Provider: TUAN SANTANA Physician Instructions: Reason For Exam: Peg tube placement 05/02/19 05:48 Consult to Physician [CONS] Routine Comment: called office/ anastacia Consulting Provider: JEANE ROJO Physician Instructions: Reason For Exam: DAWN Primary care physician: AMINA CROWE Hospitalization Condition: Stable Disposition: DC/[place]-03 SNF W [facility] CERT Core Measure Documentation - Palliative Care Palliative Care/ Comfort Measures: Not Applicable Exam - Constitutional Vitals: Temp Pulse Resp BP Pulse Ox 98.8 F 83 18 113/54 96 05/04/19 07:22 05/04/19 08:26 05/04/19 08:26 05/04/19 07:22 05/04/19 07:32 Plan Health Concerns: Dobhoff must be discontinued in 7 days or as soon as PEG placed, which ever comes first Follow up with: TUAN SANTANA MD [Staff Physician] - 3 Days AMINA CROWE MD [Primary Care Provider] - 3-5 Days
--- NOTE | 2019-05-04 19:12 | XRay Report ---
ABDOMEN 1 VIEW(S) INDICATION / CLINICAL INFORMATION: Abdominal pain COMPARISON: None available. FINDINGS: TUBES / LINES: Esophagogastric tube terminates within the mid stomach.. BOWEL GAS PATTERN: No significant abnormality. FREE AIR / EXTRALUMINAL GAS: None seen. ADDITIONAL FINDINGS: No significant additional findings. IMPRESSION: 1. No significant abnormality. Signer Name: Genaro Gleason MD Signed: 05/04/2019 7:08 PM Workstation Name: [email or web address]
[2019-05-04] MEDS: ULTRAM PO SCH (21:17)
[2019-05-04] MEDS: REMERON PO SCH (21:18)
[2019-05-05] MEDS: D5W 1,000 ML IV SCH ×3 (01:50→17:55)
[2019-05-05] MEDS: LEVSIN SL SL SCH ×6 (01:50→21:47)
[2019-05-05 05:40] LABS: Basophils % (Auto) 0.3 % (0.0-1.8); Eosinophils # (Auto) 0.2 K/mm3 (0.0-0.4); Eosinophils % (Auto) 2.4 % (0.0-4.3); Hemoglobin 9.4 gm/dl (10.1-14.3); Lymphocytes # (Auto) 2.3 K/mm3 (1.2-5.4); Lymphocytes % (Auto) 31.5 % (13.4-35.0); Mean Corpuscular HGB Conc 33 % (30-34); Mean Corpuscular Volume 86 fl (79-97); Monocytes # (Auto) 0.9 K/mm3 (0.0-0.8); Monocytes % (Auto) 12.2 % (0.0-7.3); Platelet Count 117 K/mm3 (140-440); Red Blood Count 3.37 M/mm3 (3.65-5.03); Red Cell Distribution Width 18.5 % (13.2-15.2)
[2019-05-05 05:55] LABS: Alanine Aminotransferase 17 units/L (7-56); Albumin 2.3 g/dL (3.9-5); BUN/Creatinine Ratio 6; Blood Urea Nitrogen 6 mg/dL (7-17); Calcium 7.6 mg/dL (8.4-10.2); Hemolysis Index 3
[2019-05-05] MEDS: PULMICORT IH SCH ×2 (09:21→22:28)
[2019-05-05] MEDS: BROVANA NEBU IH SCH ×2 (09:21→22:28)
[2019-05-05] MEDS: OSCAL PO SCH (09:29)
[2019-05-05] MEDS: FEOSOL PO SCH (09:29)
[2019-05-05] MEDS: ROCALTROL PO SCH (09:29)
[2019-05-05] MEDS: ZOLOFT PO SCH (09:29)
[2019-05-05] MEDS: SODIUM CHLORIDE FLUSH SYRINGE 10 ML IV SCH ×2 (09:30→21:49)
[2019-05-05] MEDS: HEPARIN SUB-Q SCH ×2 (09:30→21:48)
[2019-05-05] MEDS: PEPCID IV SCH ×2 (09:37→21:48)
[2019-05-05] MEDS ORDERED: POTASSIUM CHLORIDE FEEDTUBE ONE ×2 (11:00→14:55)
--- NOTE | 2019-05-05 12:26 | XRay Report ---
ABDOMEN 1 VIEW(S) INDICATION / CLINICAL INFORMATION: Dobb off placement. COMPARISON: Exam on 05/04/2019. FINDINGS: TUBES / LINES: The tip of the feeding tube projects over the distal stomach. BOWEL GAS PATTERN/EXTRALUMINAL GAS: No significant abnormality. No pneumatosis or secondary signs of free air. ADDITIONAL FINDINGS: No significant additional findings. IMPRESSION: 1. Feeding tube tip projects over the distal stomach. Signer Name: Rajeev Hernandez MD Signed: 05/05/2019 12:22 PM Workstation Name: [id number]
[2019-05-05] MEDS ORDERED: K-DUR PO ONE (13:13)
--- NOTE | 2019-05-05 19:52 | Progress Note ---
Assessment and Plan 1. Acute kidney injury: Vasomotor DAWN in the setting of volume depletion. Renal US was negative for hydro. Continue IV fluids. Renal function is better. Monitor renal function. Avoid nephrotoxic agents. Meds dosage based on GFR. 2. FEN: Hypernatremia, improved. Replete K. Monitor lytes. 3. Adult failure to thrive. 4. Dementia. 5. Hypertension. Subjective Date of service: 05/05/19 Principal diagnosis: acute renal failure, failure to thrive from senna debility, hypokalemia Interval history: Patient was seen and examined at the bedside. Niece at the bedside. Objective - Vital Signs Vital signs: Vital Signs - 12hr 05/05/19 05/05/19 05/05/19 09:00 10:00 13:22 Temperature 98.0 F Pulse Rate [ 105 H Bilateral] Pulse Rate [ 89 Right Brachial] Respiratory 20 20 Rate Respiratory 17 Rate [Bilateral ] Blood Pressure 105/65 O2 Sat by Pulse 95 Oximetry - General Appearance General appearance: well-developed, appears stated age, other (no distress, on mittens, NG feeding tube noted) EENT: ATNC, PERRL Neck: other (Trachea midline) Respiratory: Present: Clear to Ascultation Cardiology: regular, S1S2, no murmurs Gastrointestinal: normoactive bowel sounds, no tenderness, no distended Integumentary: no rash, warm and dry Neurologic: other (non-verbal, not following any command) Musculoskeletal: other (no edema) - Lab 05/05/19 04:49 05/05/19 04:49 Most recent lab results Calcium 7.6 mg/dL (8.4-10.2) L 05/05/19 04:49 Phosphorus 3.50 mg/dL (2.5-4.5) D 05/04/19 04:46 Magnesium 2.40 mg/dL (1.7-2.3) H 05/01/19 15:43 80.8 mg/dL (0.1-20.0) H 05/02/19 21:00 115 mmol/L 05/02/19 21:00 Medications & Allergies - Medications Allergies/Adverse Reactions: Allergies Penicillins Allergy (Verified 05/04/19 06:46) Unknown strawberry Allergy (Verified 05/04/19 06:46) Unknown Home Medications: Home Medications Medication Instructions Recorded Confirmed Last Taken Type Albuterol Sulfate [Proventil Hfa] 6.7 gm IH Q4H 05/01/19 05/01/19 04/30/19 History AtorvaSTATin [Lipitor] 20 mg PO QHS 05/01/19 05/01/19 04/30/19 History Bisacodyl 10 mg RC Q8H 05/01/19 05/01/19 04/30/19 History Calcitriol [Rocaltrol] 0.25 mcg PO QDAY 05/01/19 05/01/19 04/30/19 History Calcium Carbonate [Calcium 1,000 mg PO QDAY 05/01/19 05/01/19 04/30/19 History Carbonate 500MG TAB] Diclofenac 1% [Diclofenac 1% 20 applic TP Q6H 05/01/19 05/01/19 04/30/19 History topical gel] Docusate Sodium [Colace CAP] 100 mg PO BID PRN 05/01/19 05/01/19 04/30/19 History Ferrous Sulfate [Iron 325 MG] 325 mg PO QDAY 05/01/19 05/01/19 04/30/19 History Hyoscyamine Sulfate 0.125 mg SL Q4H 05/01/19 05/01/19 04/30/19 History LORazepam [Ativan] 0.5 mg PO Q4H PRN 05/01/19 05/01/19 04/30/19 History Mirtazapine [Remeron 15mg TAB] 15 mg PO QHS 05/01/19 05/01/19 04/30/19 History Morphine [Morphine ORAL SOLN 10 10 mg PO Q2H 05/01/19 05/01/19 04/30/19 History MG/5 ML] Promethazine [Phenergan] 25 mg PO Q4H 05/01/19 05/01/19 04/30/19 History Sertraline [Zoloft] 25 mg PO QDAY 05/01/19 05/01/19 04/30/19 History traMADol [Ultram 50 MG tab] 50 mg PO QHS 05/01/19 05/01/19 04/30/19 History Active Medications: Generic Name Dose Route Start Last Admin Trade Name Freq PRN Reason Stop Dose Admin Acetaminophen 650 mg 05/02/19 02:04 Tylenol PO Q4H PRN Pain MILD(1-3)/Fever >100.5/DICK Albuterol 2.5 mg 05/02/19 05:47 Proventil IH Q4HRT PRN Shortness Of Breath Lipase/Protease/Amylase 1 each 05/04/19 13:53 [place]vel 10,500 Unit FEEDTUBE PRN PRN For Clogged Feeding Tube Arformoterol Tartrate 15 mcg 05/02/19 20:00 05/05/19 09:21 Brovana Nebu IH 15 mcg Q12HRT ANAI Administration Budesonide 0.5 mg 05/02/19 20:00 05/05/19 09:21 Pulmicort IH 0.5 mg Q12HRT ANAI Administration Calcitriol 0.25 mcg 05/02/19 10:00 05/05/19 09:29 Rocaltrol PO 0.25 mcg QDAY ANAI Administration Calcium Carbonate/Glycine 1,250 mg 05/02/19 10:00 05/05/19 09:29 Oscal PO 1,250 mg QDAY ANAI Administration Docusate Sodium 100 mg 05/02/19 05:35 Colace PO BID PRN Constipation Famotidine 10 mg 05/02/19 03:00 05/05/19 09:37 Pepcid IV 10 mg BID ANAI Administration Ferrous Sulfate 325 mg 05/02/19 10:00 05/05/19 09:29 Feosol PO 325 mg QDAY ANAI Administration Heparin Sodium (Porcine) 5,000 unit 05/02/19 10:00 05/05/19 09:30 Heparin SUB-Q 5,000 unit Q12HR ANAI Administration Hydromorphone HCl 0.5 mg 05/02/19 02:12 Dilaudid IV Q3H PRN Pain , Severe (7-10) Hyoscyamine 0.125 mg 05/02/19 06:00 05/05/19 17:54 Levsin Sl SL 0.125 mg Q4H ANAI Administration Dextrose 1,000 mls @ 125 mls/hr 05/02/19 03:00 05/05/19 17:55 D5w IV 125 mls/hr DIRECT ANAI Administration Lorazepam 0.5 mg 05/02/19 05:35 Ativan PO Q4H PRN Anxiety Metoclopramide HCl 5 mg 05/02/19 02:15 Reglan IV Q6H PRN Nausea And Vomiting Mirtazapine 15 mg 05/02/19 22:00 05/04/19 21:18 Remeron PO 15 mg QHS ANAI Administration Ondansetron HCl 4 mg 05/02/19 02:04 05/03/19 22:13 Zofran IV 4 mg Q8H PRN Administration Nausea And Vomiting Sertraline HCl 25 mg 05/02/19 10:00 05/05/19 09:29 Zoloft PO 25 mg QDAY ANAI Administration Simple Syrup 15 ml 05/04/19 13:53 Simple Syrup FEEDTUBE PRN PRN Hypoglycemia Simple Syrup 30 ml 05/04/19 13:53 Simple Syrup FEEDTUBE PRN PRN Hypoglycemia Sodium Bicarbonate 325 mg 05/04/19 13:53 Sodium Bicarbonate FEEDTUBE PRN PRN For Clogged Feeding Tube Sodium Chloride 10 ml 05/02/19 10:00 05/05/19 09:30 Sodium Chloride Flush Syringe 10 Ml IV 10 ml BID ANAI Administration Sodium Chloride 10 ml 05/02/19 02:04 Sodium Chloride Flush Syringe 10 Ml IV PRN PRN LINE FLUSH Tramadol HCl 50 mg 05/02/19 22:00 05/04/19 21:17 Ultram PO 50 mg QHS ANAI Administration
[2019-05-05] MEDS: REMERON PO SCH (21:48)
[2019-05-05] MEDS: ULTRAM PO SCH (21:48)
[2019-05-06] MEDS: LEVSIN SL SL SCH ×5 (02:01→17:21)
[2019-05-06 06:44] LABS: Basophils % (Auto) 0.3 % (0.0-1.8); Eosinophils # (Auto) 0.2 K/mm3 (0.0-0.4); Eosinophils % (Auto) 2.2 % (0.0-4.3); Hematocrit 29.9 % (30.3-42.9); Hemoglobin 9.6 gm/dl (10.1-14.3); Lymphocytes # (Auto) 2.2 K/mm3 (1.2-5.4); Lymphocytes % (Auto) 28.4 % (13.4-35.0); Mean Corpuscular HGB Conc 32 % (30-34); Mean Corpuscular Volume 86 fl (79-97); Monocytes # (Auto) 1.2 K/mm3 (0.0-0.8); Monocytes % (Auto) 15.5 % (0.0-7.3); Platelet Count 126 K/mm3 (140-440); Red Blood Count 3.47 M/mm3 (3.65-5.03); Red Cell Distribution Width 18.3 % (13.2-15.2)
--- NOTE | 2019-05-06 07:04 | Progress Note ---
Assessment and Plan - Acute kidney injury: Vasomotor DAWN in the setting of volume depletion. Urine studies and Renal US ordered. Continue IV fluids. Renal function is improving. Monitor renal function. Avoid nephrotoxic agents. Meds dosage based on GFR. -Hypernatremia: - imrpoving Hypernatremia, 2/2 dehydration. Continue IV D5W. - Hypokalemia Replete further and recheck RESOLVED - Advanced dementia Fall precautions Optimize nursing care - Constipation Colace and lactulose - Severe Oropharyngeal dysphagia for PEG tube placement Daughter refusing to take the patieent back to [place].She wants peg tube this admission. Will reach out to GI - Adult failure to thrive: PEG tube placement. GI consulted. - Irritable bowel syndrome Continue Levsin - Depression Continue with sertraline -DVT prophylaxis and GI with Pepcid With heparin History Interval history: patient lying quietly in bed in no distress. Contracted individual extremities. none verbal. Subjective Date of service: 05/05/19 Principal diagnosis: acute renal failure, failure to thrive from senna debility, hypokalemia Interval history: PER ED NOTE "78-year-old female with a past with a history of vascular dementia, elevated cholesterol, hypertension, asthma, and hyperlipidemia presents to the hospital from the endoscopy lab for hypokalemia and needing PEG tube placement. Patient was sent by longterm for PEG tube placement. Patient had repeat procedure lasted revealing a potassium of 2.7 and sodium 166. Procedure was aborted and patient was sent to the ER for hypokalemia. Patient is nonverbal and does not follow commands and is unable to provide any additional history of present illness. There is a DO NOT RESUSCITATE noted on longterm face sheet however advanced directive paperwork is not included. PEG being placed because pt is not eating." Objective - Constitutional Vitals: Vital Signs - 12hr 05/05/19 05/05/19 05/05/19 19:43 22:00 22:31 Temperature 97.3 F L Pulse Rate 102 H Pulse Rate [ 100 H Bilateral] Pulse Rate [ 100 H Right Brachial] Respiratory 18 17 Rate Respiratory 17 Rate [Bilateral ] Blood Pressure 116/51 O2 Sat by Pulse 100 100 Oximetry General appearance: Present: no acute distress, well-nourished - EENT Eyes: PERRL, EOM intact ENT: hearing intact, clear oral mucosa Ears: bilateral: normal - Neck Neck: supple, normal ROM - Respiratory Respiratory effort: normal Respiratory: bilateral: CTA - Breasts Breasts: normal - Cardiovascular Heart rate: 78 Rhythm: regular Heart Sounds: Present: S1 & S2. Absent: gallop, rub Extremities: pulses intact, No edema, normal color, Full ROM - Gastrointestinal General gastrointestinal: Present: soft, non-tender, non-distended, normal bowel sounds - Genitourinary Female genitourinary: normal - Integumentary Integumentary: clear, warm, dry - Musculoskeletal Musculoskeletal: 1, strength equal bilaterally - Neurologic Neurologic: moves all extremities - Psychiatric Psychiatric: memory intact, appropriate mood/affect, intact judgment & insight - Labs CBC & Chem 7: 05/06/19 05:33 05/05/19 04:49 Labs: Abnormal lab results 05/05/19 05/05/19 05/05/19 Range/Units 12:51 18:39 23:36 RBC (3.65-5.03) M/mm3 Hgb (10.1-14.3) gm/dl Hct (30.3-42.9) % RDW (13.2-15.2) % Plt Count (140-440) K/mm3 Callahan % (Auto) (0.0-7.3) % Callahan # (0.0-0.8) K/mm3 POC Glucose 132 H 133 H 121 H (70-105) 05/06/19 05/06/19 05/06/19 Range/Units 05:33 05:49 06:34 RBC 3.47 L (3.65-5.03) M/mm3 Hgb 9.6 L (10.1-14.3) gm/dl Hct 29.9 L (30.3-42.9) % RDW 18.3 H (13.2-15.2) % Plt Count 126 L (140-440) K/mm3 Callahan % (Auto) 15.5 H (0.0-7.3) % Callahan # 1.2 H (0.0-0.8) K/mm3 POC Glucose 108 H 107 H (70-105)
[2019-05-06 07:34] LABS: Alanine Aminotransferase 21 units/L (7-56); Albumin 2.3 g/dL (3.9-5); BUN/Creatinine Ratio 6; Blood Urea Nitrogen 6 mg/dL (7-17); Calcium 8.2 mg/dL (8.4-10.2); Hemolysis Index 2
[2019-05-06] MEDS: PULMICORT IH SCH ×2 (07:57→20:38)
[2019-05-06] MEDS: BROVANA NEBU IH SCH ×2 (07:57→20:38)
[2019-05-06] MEDS: FEOSOL PO SCH (09:58)
[2019-05-06] MEDS: ZOLOFT PO SCH (09:58)
[2019-05-06] MEDS: ROCALTROL PO SCH (09:58)
[2019-05-06] MEDS: OSCAL PO SCH (09:58)
[2019-05-06] MEDS: PEPCID IV SCH ×2 (09:58→22:00)
[2019-05-06] MEDS: HEPARIN SUB-Q SCH (09:59)
[2019-05-06] MEDS: SODIUM CHLORIDE FLUSH SYRINGE 10 ML IV SCH ×2 (10:00→22:00)
--- NOTE | 2019-05-06 11:47 | Progress Note ---
Assessment and Plan 1. Acute kidney injury: Vasomotor DAWN in the setting of volume depletion. Renal US was negative for hydro. Continue IV fluids. Renal function is better. Monitor renal function. Avoid nephrotoxic agents. 2. FEN: Hypernatremia, improved. Monitor lytes. 3. Adult failure to thrive. 4. Dementia. 5. Dysphagia. 6. Hypertension. Subjective Date of service: 05/06/19 Principal diagnosis: acute renal failure, failure to thrive from senna debility, hypokalemia Interval history: Patient was seen and examined at the bedside. Niece at the bedside. Objective - Vital Signs Vital signs: Vital Signs - 12hr 05/06/19 05/06/19 05/06/19 02:08 07:50 07:55 Temperature 99.9 F H Pulse Rate 85 83 Pulse Rate [ 82 Bilateral] Respiratory 18 Rate Respiratory 18 Rate [Bilateral ] Blood Pressure 136/62 Blood Pressure [Left] O2 Sat by Pulse 98 100 Oximetry 05/06/19 05/06/19 08:00 08:37 Temperature 97.5 F L Pulse Rate Pulse Rate [ Bilateral] Respiratory 18 18 Rate Respiratory Rate [Bilateral ] Blood Pressure Blood Pressure 100/63 [Left] O2 Sat by Pulse 97 Oximetry - General Appearance General appearance: well-developed, appears stated age, other (no distress, NG tube, b/l mittens noted) EENT: ATNC, PERRL Neck: other (Trachea midline.) Respiratory: Present: Clear to Ascultation Cardiology: regular, S1S2, no murmurs Gastrointestinal: normoactive bowel sounds, no tenderness, no distended Integumentary: no rash Neurologic: other (alert, non-verbal, not following any command) Musculoskeletal: other (no edema) - Lab 05/06/19 05:33 05/06/19 05:33 Most recent lab results Calcium 8.2 mg/dL (8.4-10.2) L 05/06/19 05:33 Phosphorus 2.60 mg/dL (2.5-4.5) 05/06/19 05:33 Magnesium 2.40 mg/dL (1.7-2.3) H 05/01/19 15:43 80.8 mg/dL (0.1-20.0) H 05/02/19 21:00 115 mmol/L 05/02/19 21:00 Medications & Allergies - Medications Allergies/Adverse Reactions: Allergies Penicillins Allergy (Verified 05/04/19 06:46) Unknown strawberry Allergy (Verified 05/04/19 06:46) Unknown Home Medications: Home Medications Medication Instructions Recorded Confirmed Last Taken Type Albuterol Sulfate [Proventil Hfa] 6.7 gm IH Q4H 05/01/19 05/01/19 04/30/19 History AtorvaSTATin [Lipitor] 20 mg PO QHS 05/01/19 05/01/19 04/30/19 History Bisacodyl 10 mg RC Q8H 05/01/19 05/01/19 04/30/19 History Calcitriol [Rocaltrol] 0.25 mcg PO QDAY 05/01/19 05/01/19 04/30/19 History Calcium Carbonate [Calcium 1,000 mg PO QDAY 05/01/19 05/01/19 04/30/19 History Carbonate 500MG TAB] Diclofenac 1% [Diclofenac 1% 20 applic TP Q6H 05/01/19 05/01/19 04/30/19 History topical gel] Docusate Sodium [Colace CAP] 100 mg PO BID PRN 05/01/19 05/01/19 04/30/19 History Ferrous Sulfate [Iron 325 MG] 325 mg PO QDAY 05/01/19 05/01/19 04/30/19 History Hyoscyamine Sulfate 0.125 mg SL Q4H 05/01/19 05/01/19 04/30/19 History LORazepam [Ativan] 0.5 mg PO Q4H PRN 05/01/19 05/01/19 04/30/19 History Mirtazapine [Remeron 15mg TAB] 15 mg PO QHS 05/01/19 05/01/19 04/30/19 History Morphine [Morphine ORAL SOLN 10 10 mg PO Q2H 05/01/19 05/01/19 04/30/19 History MG/5 ML] Promethazine [Phenergan] 25 mg PO Q4H 05/01/19 05/01/19 04/30/19 History Sertraline [Zoloft] 25 mg PO QDAY 05/01/19 05/01/19 04/30/19 History traMADol [Ultram 50 MG tab] 50 mg PO QHS 08/05/01/19 04/30/19 History Active Medications: Generic Name Dose Route Start Last Admin Trade Name Freq PRN Reason Stop Dose Admin Acetaminophen 650 mg 05/02/19 02:04 Tylenol PO Q4H PRN Pain MILD(1-3)/Fever >100.5/DICK Albuterol 2.5 mg 05/02/19 05:47 Proventil IH Q4HRT PRN Shortness Of Breath Lipase/Protease/Amylase 1 each 05/04/19 13:53 [place]vel 10,500 Unit FEEDTUBE PRN PRN For Clogged Feeding Tube Arformoterol Tartrate 15 mcg 05/02/19 20:00 05/06/19 07:57 Brovana Nebu IH 15 mcg Q12HRT ANAI Administration Budesonide 0.5 mg 05/02/19 20:00 05/06/19 07:57 Pulmicort IH 0.5 mg Q12HRT ANAI Administration Calcitriol 0.25 mcg 05/02/19 10:00 05/06/19 09:58 Rocaltrol PO 0.25 mcg QDAY ANAI Administration Calcium Carbonate/Glycine 1,250 mg 05/02/19 10:00 05/06/19 09:58 Oscal PO 1,250 mg QDAY ANAI Administration Docusate Sodium 100 mg 05/02/19 05:35 Colace PO BID PRN Constipation Famotidine 10 mg 05/02/19 03:00 05/06/19 09:58 Pepcid IV 10 mg BID ANAI Administration Ferrous Sulfate 325 mg 05/02/19 10:00 05/06/19 09:58 Feosol PO 325 mg QDAY ANAI Administration Heparin Sodium (Porcine) 5,000 unit 05/02/19 10:00 05/06/19 09:59 Heparin SUB-Q 5,000 unit Q12HR ANAI Administration Hydromorphone HCl 0.5 mg 05/02/19 02:12 Dilaudid IV Q3H PRN Pain , Severe (7-10) Hyoscyamine 0.125 mg 05/02/19 06:00 05/06/19 11:00 Levsin Sl SL 0.125 mg Q4H ANAI Administration Lorazepam 0.5 mg 05/02/19 05:35 Ativan PO Q4H PRN Anxiety Metoclopramide HCl 5 mg 05/02/19 02:15 Reglan IV Q6H PRN Nausea And Vomiting Mirtazapine 15 mg 05/02/19 22:00 05/05/19 21:48 Remeron PO 15 mg QHS ANAI Administration Ondansetron HCl 4 mg 05/02/19 02:04 05/03/19 22:13 Zofran IV 4 mg Q8H PRN Administration Nausea And Vomiting Sertraline HCl 25 mg 05/02/19 10:00 05/06/19 09:58 Zoloft PO 25 mg QDAY ANAI Administration Simple Syrup 15 ml 05/04/19 13:53 Simple Syrup FEEDTUBE PRN PRN Hypoglycemia Simple Syrup 30 ml 05/04/19 13:53 Simple Syrup FEEDTUBE PRN PRN Hypoglycemia Sodium Bicarbonate 325 mg 05/04/19 13:53 Sodium Bicarbonate FEEDTUBE PRN PRN For Clogged Feeding Tube Sodium Chloride 10 ml 05/02/19 10:00 05/06/19 10:00 Sodium Chloride Flush Syringe 10 Ml IV 10 ml BID ANAI Administration Sodium Chloride 10 ml 05/02/19 02:04 Sodium Chloride Flush Syringe 10 Ml IV PRN PRN LINE FLUSH Tramadol HCl 50 mg 05/02/19 22:00 05/05/19 21:48 Ultram PO 50 mg QHS ANAI Administration
--- NOTE | 2019-05-06 17:16 | Progress Note ---
Assessment and Plan - Acute kidney injury: Vasomotor DAWN in the setting of volume depletion. Urine studies and Renal US ordered. Continue IV fluids. Renal function is improving. Monitor renal function. Avoid nephrotoxic agents. Meds dosage based on GFR. -Hypernatremia: - imrpoving Hypernatremia, 2/2 dehydration. Continue IV D5W. - Hypokalemia Replete further and recheck RESOLVED - Advanced dementia Fall precautions Optimize nursing care - Constipation Colace and lactulose - Severe Oropharyngeal dysphagia for PEG tube placement Daughter refusing to take the patieent back to [place].She wants peg tube this admission. Will reach out to GI - Adult failure to thrive: PEG tube placement. GI consulted. Severe Malnutrition noted 25 percent weight loss over one month and also has Orbital wasting Low Albumin of 2.3 Dietitian already consulted - Irritable bowel syndrome Continue Levsin - Depression Continue with sertraline -DVT prophylaxis and GI with Pepcid With heparin For PEG tomorrow D/w Dr Whitley History Interval history: patient lying quietly in bed in no distress. Contracted individual extremities. none verbal. Subjective Date of service: 05/06/19 Principal diagnosis: acute renal failure, failure to thrive from senna debility, hypokalemia Interval history: PER ED NOTE "78-year-old female with a past with a history of vascular dementia, elevated cholesterol, hypertension, asthma, and hyperlipidemia presents to the h [facility]spital from the endoscopy lab for hypokalemia and needing PEG tube placement. Patient was sent by custodial for PEG tube placement. Patient had repeat procedure lasted revealing a potassium of 2.7 and sodium 166. Procedure was aborted and patient was sent to the ER for hypokalemia. Patient is nonverbal and does not follow commands and is unable to provide any additional history of present illness. There is a DO NOT RESUSCITATE noted on custodial face sheet however advanced directive paperwork is not included. PEG being placed because pt is not eating." Objective - Constitutional Vitals: Vital Signs - 12hr 05/06/19 05/06/19 05/06/19 07:50 07:55 08:00 Temperature 97.5 F L Pulse Rate 83 Pulse Rate [ 82 Bilateral] Respiratory 18 Rate Respiratory 18 Rate [Bilateral ] Blood Pressure Blood Pressure 100/63 [Left] O2 Sat by Pulse 100 Oximetry 05/06/19 05/06/19 08:37 12:47 Temperature 97.9 F Pulse Rate 93 H Pulse Rate [ Bilateral] Respiratory 18 18 Rate Respiratory Rate [Bilateral ] Blood Pressure 91/51 Blood Pressure [Left] O2 Sat by Pulse 97 100 Oximetry General appearance: Present: no acute distress, well-nourished - EENT Eyes: PERRL, EOM intact ENT: hearing intact, clear oral mucosa Ears: bilateral: normal - Neck Neck: supple, normal ROM - Respiratory Respiratory effort: normal Respiratory: bilateral: CTA - Breasts Breasts: normal - Cardiovascular Heart rate: 78 Rhythm: regular Heart Sounds: Present: S1 & S2. Absent: gallop, rub Extremities: pulses intact, No edema, normal color, Full ROM - Gastrointestinal General gastrointestinal: Present: soft, non-tender, non-distended, normal bowel sounds - Genitourinary Female genitourinary: normal - Integumentary Integumentary: clear, warm, dry - Musculoskeletal Musculoskeletal: 1, strength equal bilaterally - Neurologic Neurologic: moves all extremities, other (Severe Dementia) - Psychiatric Psychiatric: other (Severe dementia) - Labs CBC & Chem 7: 05/06/19 05:33 05/06/19 05:33 Labs: Abnormal lab results 05/05/19 05/05/19 05/06/19 Range/Units 18:39 23:36 05:33 RBC 3.47 L (3.65-5.03) M/mm3 Hgb 9.6 L (10.1-14.3) gm/dl Hct 29.9 L (30.3-42.9) % RDW 18.3 H (13.2-15.2) % Plt Count 126 L (140-440) K/mm3 Sanders % (Auto) 15.5 H (0.0-7.3) % Sanders # 1.2 H (0.0-0.8) K/mm3 BUN (7-17) mg/dL Glucose (65-100) mg/dL POC Glucose 133 H 121 H (70-105) Calcium (8.4-10.2) mg/dL Alkaline Phosphatase (35-129) units/L Albumin (3.9-5) g/dL 05/06/19 05/06/19 05/06/19 Range/Units 05:33 05:49 06:34 RBC (3.65-5.03) M/mm3 Hgb (10.1-14.3) gm/dl Hct (30.3-42.9) % RDW (13.2-15.2) % Plt Count (140-440) K/mm3 Sanders % (Auto) (0.0-7.3) % Sanders # (0.0-0.8) K/mm3 BUN 6 L (7-17) mg/dL Glucose 110 H (65-100) mg/dL POC Glucose 108 H 107 H (70-105) Calcium 8.2 L (8.4-10.2) mg/dL Alkaline Phosphatase 169 H (35-129) units/L Albumin 2.3 L (3.9-5) g/dL 05/06/19 Range/Units 11:35 RBC (3.65-5.03) M/mm3 Hgb (10.1-14.3) gm/dl Hct (30.3-42.9) % RDW (13.2-15.2) % Plt Count (140-440) K/mm3 Sanders % (Auto) (0.0-7.3) % Sanders # (0.0-0.8) K/mm3 BUN (7-17) mg/dL Glucose (65-100) mg/dL POC Glucose 125 H (70-105) Calcium (8.4-10.2) mg/dL Alkaline Phosphatase (35-129) units/L Albumin (3.9-5) g/dL
[2019-05-06] MEDS: ULTRAM PO SCH (22:00)
[2019-05-07] MEDS: HEPARIN SUB-Q SCH (04:52)
[2019-05-07] MEDS: LEVSIN SL SL SCH ×6 (04:52→18:00)
[2019-05-07] MEDS: REMERON PO SCH (04:54)
[2019-05-07 06:11] LABS: Basophils % (Auto) 0.4 % (0.0-1.8); Eosinophils # (Auto) 0.1 K/mm3 (0.0-0.4); Eosinophils % (Auto) 1.2 % (0.0-4.3); Hematocrit 30.7 % (30.3-42.9); Lymphocytes # (Auto) 2.6 K/mm3 (1.2-5.4); Lymphocytes % (Auto) 26.3 % (13.4-35.0); Mean Corpuscular HGB Conc 33 % (30-34); Mean Corpuscular Volume 85 fl (79-97); Monocytes # (Auto) 1.4 K/mm3 (0.0-0.8); Monocytes % (Auto) 14.2 % (0.0-7.3); Platelet Count 150 K/mm3 (140-440); Red Blood Count 3.61 M/mm3 (3.65-5.03); Red Cell Distribution Width 18.6 % (13.2-15.2)
[2019-05-07 06:27] LABS: Alanine Aminotransferase 23 units/L (7-56); Albumin 2.6 g/dL (3.9-5); BUN/Creatinine Ratio 10; Blood Urea Nitrogen 10 mg/dL (7-17); Calcium 8.8 mg/dL (8.4-10.2); Hemolysis Index 33
[2019-05-07 07:42] LABS: INR 1.08 (0.87-1.13); Partial Thromboplastin Time 27.5 Sec. (24.2-36.6)
[2019-05-07] MEDS: BROVANA NEBU IH SCH ×2 (07:54→22:16)
[2019-05-07] MEDS: PULMICORT IH SCH ×2 (07:54→22:16)
--- NOTE | 2019-05-07 09:15 | Progress Note ---
Assessment and Plan 1. Acute kidney injury: Vasomotor DAWN in the setting of volume depletion. Renal US was negative for hydro. Renal function is better. Monitor renal function. Avoid nephrotoxic agents. 2. FEN: Hypernatremia, improved. Monitor lytes. 3. Adult failure to thrive. 4. Dementia. 5. Dysphagia. 6. Hypertension. Will sign off. Subjective Date of service: 05/07/19 Principal diagnosis: acute renal failure, failure to thrive from senna debility, hypokalemia Interval history: Patient was seen and examined at the bedside. Objective - Vital Signs Vital signs: Vital Signs - 12hr 05/06/19 05/07/19 05/07/19 22:00 02:15 02:17 Temperature 98.3 F Pulse Rate 82 Pulse Rate [ Bilateral] Respiratory 18 18 Rate Respiratory Rate [Bilateral ] Blood Pressure 120/63 O2 Sat by Pulse 97 93 Oximetry 05/07/19 05/07/19 07:53 08:03 Temperature 99.0 F Pulse Rate 94 H Pulse Rate [ 81 Bilateral] Respiratory 20 Rate Respiratory 18 Rate [Bilateral ] Blood Pressure 115/64 O2 Sat by Pulse 97 Oximetry - General Appearance General appearance: well-developed, appears stated age, other (no distress) EENT: ATNC, PERRL Neck: other (Trachea midline) Respiratory: Present: Clear to Ascultation Cardiology: regular, S1S2, no murmurs Gastrointestinal: normoactive bowel sounds, no tenderness, no distended Integumentary: no rash, warm and dry Neurologic: other (alert, non-verbal, not following any command) Musculoskeletal: other (no edema) - Lab 05/07/19 04:33 05/07/19 04:33 Most recent lab results Calcium 8.8 mg/dL (8.4-10.2) 05/07/19 04:33 Phosphorus 2.60 mg/dL (2.5-4.5) 05/06/19 05:33 Magnesium 2.40 mg/dL (1.7-2.3) H 05/01/19 15:43 80.8 mg/dL (0.1-20.0) H 05/02/19 21:00 115 mmol/L 05/02/19 21:00 Medications & Allergies - Medications Allergies/Adverse Reactions: Allergies Penicillins Allergy (Verified 05/04/19 06:46) Unknown strawberry Allergy (Verified 05/04/19 06:46) Unknown Home Medications: Home Medications Medication Instructions Recorded Confirmed Last Taken Type Albuterol Sulfate [Proventil Hfa] 6.7 gm IH Q4H 05/01/19 05/01/19 04/30/19 History AtorvaSTATin [Lipitor] 20 mg PO QHS 05/01/19 05/01/19 04/30/19 History Bisacodyl 10 mg RC Q8H 05/01/19 05/01/19 04/30/19 History Calcitriol [Rocaltrol] 0.25 mcg PO QDAY 05/01/19 05/01/19 04/30/19 History Calcium Carbonate [Calcium 1,000 mg PO QDAY 05/01/19 05/01/19 04/30/19 History Carbonate 500MG TAB] Diclofenac 1% [Diclofenac 1% 20 applic TP Q6H 05/01/19 05/01/19 04/30/19 History topical gel] Docusate Sodium [Colace CAP] 100 mg PO BID PRN 05/01/19 05/01/19 04/30/19 History Ferrous Sulfate [Iron 325 MG] 325 mg PO QDAY 05/01/19 05/01/19 04/30/19 History Hyoscyamine Sulfate 0.125 mg SL Q4H 05/01/19 05/01/19 04/30/19 History LORazepam [Ativan] 0.5 mg PO Q4H PRN 05/01/19 05/01/19 04/30/19 History Mirtazapine [Remeron 15mg TAB] 15 mg PO QHS 05/01/19 05/01/19 04/30/19 History Morphine [Morphine ORAL SOLN 10 10 mg PO Q2H 05/01/19 05/01/19 04/30/19 History MG/5 ML] Promethazine [Phenergan] 25 mg PO Q4H 05/01/19 05/01/19 04/30/19 History Sertraline [Zoloft] 25 mg PO QDAY 05/01/19 05/01/19 04/30/19 History traMADol [Ultram 50 MG tab] 50 mg PO QHS 05/01/19 05/01/19 04/30/19 History Active Medications: Generic Name Dose Route Start Last Admin Trade Name Freq PRN Reason Stop Dose Admin Acetaminophen 650 mg 05/02/19 02:04 Tylenol PO Q4H PRN Pain MILD(1-3)/Fever >100.5/DICK Albuterol 2.5 mg 05/02/19 05:47 Proventil IH Q4HRT PRN Shortness Of Breath Lipase/Protease/Amylase 1 each 05/04/19 13:53 [place]vel 10,500 Unit FEEDTUBE PRN PRN For Clogged Feeding Tube Arformoterol Tartrate 15 mcg 05/02/19 20:00 05/07/19 07:54 Brovana Nebu IH 15 mcg Q12HRT ANAI Administration Budesonide 0.5 mg 05/02/19 20:00 05/07/19 07:54 Pulmicort IH 0.5 mg Q12HRT ANAI Administration Calcitriol 0.25 mcg 05/02/19 10:00 05/06/19 09:58 Rocaltrol PO 0.25 mcg QDAY ANAI Administration Calcium Carbonate/Glycine 1,250 mg 05/02/19 10:00 05/06/19 09:58 Oscal PO 1,250 mg QDAY ANAI Administration Docusate Sodium 100 mg 05/02/19 05:35 Colace PO BID PRN Constipation Famotidine 10 mg 05/02/19 03:00 05/06/19 22:00 Pepcid IV 10 mg BID ANAI Administration Ferrous Sulfate 325 mg 05/02/19 10:00 05/06/19 09:58 Feosol PO 325 mg QDAY ANAI Administration Hydromorphone HCl 0.5 mg 05/02/19 02:12 Dilaudid IV Q3H PRN Pain , Severe (7-10) Hyoscyamine 0.125 mg 05/02/19 06:00 05/07/19 04:59 Levsin Sl SL 0.125 mg Q4H ANAI Administration Lorazepam 0.5 mg 05/02/19 05:35 Ativan PO Q4H PRN Anxiety Metoclopramide HCl 5 mg 05/02/19 02:15 Reglan IV Q6H PRN Nausea And Vomiting Mirtazapine 15 mg 05/02/19 22:00 05/07/19 04:54 Remeron PO Not Given QHS ANAI Ondansetron HCl 4 mg 05/02/19 02:04 05/03/19 22:13 Zofran IV 4 mg Q8H PRN Administration Nausea And Vomiting Sertraline HCl 25 mg 05/02/19 10:00 05/06/19 09:58 Zoloft PO 25 mg QDAY ANAI Administration Simple Syrup 15 ml 05/04/19 13:53 Simple Syrup FEEDTUBE PRN PRN Hypoglycemia Simple Syrup 30 ml 05/04/19 13:53 Simple Syrup FEEDTUBE PRN PRN Hypoglycemia Sodium Bicarbonate 325 mg 05/04/19 13:53 Sodium Bicarbonate FEEDTUBE PRN PRN For Clogged Feeding Tube Sodium Chloride 10 ml 05/02/19 10:00 05/06/19 22:00 Sodium Chloride Flush Syringe 10 Ml IV 10 ml BID ANAI Administration Sodium Chloride 10 ml 05/02/19 02:04 Sodium Chloride Flush Syringe 10 Ml IV PRN PRN LINE FLUSH
[2019-05-07] MEDS: PEPCID IV SCH (09:43)
[2019-05-07] MEDS: ROCALTROL PO SCH (09:47)
[2019-05-07] MEDS: SODIUM CHLORIDE FLUSH SYRINGE 10 ML IV SCH (09:47)
[2019-05-07] MEDS: FEOSOL PO SCH (09:47)
[2019-05-07] MEDS: OSCAL PO SCH (09:47)
[2019-05-07] MEDS: ZOLOFT PO SCH (09:47)
[2019-05-07] MEDS ORDERED: XYLOCAINE MPF 2% ONE (10:30)
[2019-05-07] MEDS ORDERED: DIPRIVAN 10 MG/ML IV ONE (10:56)
[2019-05-07] MEDS ORDERED: ANCEF/STERILE WATER 2 GM/20 ML 2 GM/20 ML SYRINGE IV NR (11:00)
--- NOTE | 2019-05-07 11:10 | Post Operative Note ---
Pre-op diagnosis: dysphagia, weight loss Post-op diagnosis: same Findings: EGD: hiatal hernia - gastritis - 20 F pull peg placed, bumper at 4 1/2 cm Procedure: EGD/peg Anesthesia: MAC Surgeon: LUIS OSORIO Estimated blood loss: none Pathology: list Specimen disposition: to lab Condition: stable Disposition: floor
[2019-05-07] MEDS ORDERED: NACL 0.9% 1000 ML 1,000 ML IV SCH (12:00)
--- NOTE | 2019-05-07 12:53 | Progress Note ---
Assessment and Plan Assessment and plan: 78-year-old woman with vascular dementia who [facility] for [facility] tube [facility]. She was found to have low potassium, 2.7 and markedly elevated sodium 166. Procedure was aborted, patient was medically treated. When her laboratory findings improved, PEG tube was placed on 05/07 - Acute kidney injury:dehydration Vasomotor nephropathy, resolved with IVF -Hypernatremia: - imrpoving resolved with IVF - Hypokalemia repleted - Advanced dementia Fall precautions Optimize nursing care - Constipation Colace and lactulose - Severe Oropharyngeal dysphagia sp PEG tube on 05/07 - Adult failure to thrive: sp PEG tube placement. Severe Malnutrition Dietitian already consult appreciated, tube feeding - Irritable bowel syndrome Continue Levsin - Depression Continue with sertraline -DVT prophylaxis and GI with Pepcid With heparin History Interval history: patient lying quietly in bed in no distress. Contracted individual extremities. none verbal. History Interval history: Demented at baseline and nonverbal No fevers, no seizures, no agitation, no vomiting Hospitalist Physical - Physical exam Narrative exam: General.: Cachectic, in no distress HEENT: Moist mucous membranes, extraocular muscles intact, no lymphadenopathy Neck: supple Cardiac: S1-S2 heard Lungs: clear to auscultation bilaterally Abdomen: soft , nontender, nondistended, bowel sounds positive Extremities: no edema clubbing or cyanosis Skin: no rash or lesions Neurologic: Dementia, nonverbal, does not obey commands Psych: calm, not agitated - Constitutional Vitals: Temp Pulse Resp BP Pulse Ox 98.8 F 92 H 15 106/63 97 05/07/19 11:08 05/07/19 11:08 05/07/19 11:08 05/07/19 11:08 05/07/19 11:08 General appearance: Present: no acute distress, well-nourished Results - Labs CBC & Chem 7: 05/07/19 04:33 05/08/19 04:45 Labs: Laboratory Last Values WBC 9.9 K/mm3 (4.5-11.0) 05/07/19 04:33 RBC 3.61 M/mm3 (3.65-5.03) L 05/07/19 04:33 Hgb 10.0 gm/dl (10.1-14.3) L 05/07/19 04:33 POC Hgb 12.9 (12-17) 05/01/19 14:42 Hct 30.7 % (30.3-42.9) 05/07/19 04:33 POC Hct 38 (38-51) 05/01/19 14:42 MCV 85 fl (79-97) 05/07/19 04:33 MCH 28 pg (28-32) 05/07/19 04:33 MCHC 33 % (30-34) 05/07/19 04:33 RDW 18.6 % (13.2-15.2) H 05/07/19 04:33 Plt Count 150 K/mm3 (140-440) 05/07/19 04:33 Lymph % (Auto) 26.3 % (13.4-35.0) 05/07/19 04:33 [place]lin % (Auto) 14.2 % (0.0-7.3) H 05/07/19 04:33 Eos % (Auto) 1.2 % (0.0-4.3) 05/07/19 04:33 Baso % (Auto) 0.4 % (0.0-1.8) 05/07/19 04:33 Lymph # 2.6 K/mm3 (1.2-5.4) 05/07/19 04:33 Collin # 1.4 K/mm3 (0.0-0.8) H 05/07/19 04:33 Eos # 0.1 K/mm3 (0.0-0.4) 05/07/19 04:33 Baso # 0.0 K/mm3 (0.0-0.1) 05/07/19 04:33 Seg Neutrophils % 57.9 % (40.0-70.0) 05/07/19 04:33 Seg Neutrophils # 5.7 K/mm3 (1.8-7.7) 05/07/19 04:33 PT 13.7 Sec. (12.2-14.9) 05/07/19 07:03 INR 1.08 (0.87-1.13) 05/07/19 07:03 APTT 27.5 Sec. (24.2-36.6) 05/07/19 07:03 POC Sodium 167 mmol/L (138-146) H 05/01/19 14:42 POC Potassium 2.7 (3.5-4.9) L 05/01/19 14:42 POC Chloride 131 (98-109) H 05/01/19 14:42 Sodium 139 mmol/L (137-145) 05/07/19 04:33 Potassium 3.8 mmol/L (3.6-5.0) 05/07/19 04:33 Chloride 99.7 mmol/L (98-107) 05/07/19 04:33 Carbon Dioxide 26 mmol/L (22-30) 05/07/19 04:33 17 mmol/L 05/07/19 04:33 POC BUN 32 mg/dl (8-26) H 05/01/19 14:42 BUN 10 mg/dL (7-17) 05/07/19 04:33 1.0 mg/dL (0.7-1.2) 05/07/19 04:33 Estimated GFR > 60 ml/min 05/07/19 04:33 10 % 05/07/19 04:33 Glucose 98 mg/dL (65-100) 05/07/19 04:33 POC Glucose 108 (70-105) H 05/07/19 05:49 Calcium 8.8 mg/dL (8.4-10.2) 05/07/19 04:33 Phosphorus 2.60 mg/dL (2.5-4.5) 05/06/19 05:33 Magnesium 2.40 mg/dL (1.7-2.3) H 05/01/19 15:43 0.40 mg/dL (0.1-1.2) 05/07/19 04:33 AST 36 units/L (5-40) 05/07/19 04:33 ALT 23 units/L (7-56) 05/07/19 04:33 184 units/L (35-129) H 05/07/19 04:33 7.9 g/dL (6.3-8.2) 05/07/19 04:33 2.6 g/dL (3.9-5) L 05/07/19 04:33 0.5 % 05/07/19 04:33 Negrita (Yellow) 05/02/19 21:00 Cloudy (Clear) 05/02/19 21:00 5.0 (5.0-7.0) 05/02/19 21:00 Ur Specific [place] 1.013 (1.003-1.030) 05/02/19 21:00 30 mg/dl mg/dL (Negative) 05/02/19 21:00 Neg mg/dL (Negative) 05/02/19 21:00 Neg mg/dL (Negative) 05/02/19 21:00 Mod (Negative) 05/02/19 21:00 Pos (Negative) 05/02/19 21:00 Neg (Negative) 05/02/19 21:00 4.0 mg/dL (<2.0) 05/02/19 21:00 Ur Leukocyte Esterase Lg (Negative) 05/02/19 21:00 103.0 /HPF (0.0-6.0) H 05/02/19 21:00 5.0 /HPF (0.0-6.0) 05/02/19 21:00 U Epithel Cells (Auto) 27.0 /HPF (0-13.0) H 05/02/19 21:00 4+ /HPF (Negative) 05/02/19 21:00 2+ /HPF 05/02/19 21:00 2+ /HPF 05/02/19 21:00 Few /HPF 05/02/19 21:00 1+ /HPF ([employer] CAB) 05/02/19 21:00 80.8 mg/dL (0.1-20.0) H 05/02/19 21:00 115 mmol/L 05/02/19 21:00 Active Medications - Current Medications Current Medications: Generic Name Dose Route Start Last Admin Trade Name Freq PRN Reason Stop Dose Admin Acetaminophen 650 mg 05/02/19 02:04 Tylenol PO Q4H PRN Pain MILD(1-3)/Fever >100.5/DICK Albuterol 2.5 mg 05/02/19 05:47 Proventil IH Q4HRT PRN Shortness Of Breath Lipase/Protease/Amylase 1 each 05/04/19 13:53 [place]vel 10,500 Unit FEEDTUBE PRN PRN For Clogged Feeding Tube Arformoterol Tartrate 15 mcg 05/02/19 20:00 05/07/19 07:54 Brovana Nebu IH 15 mcg Q12HRT ANAI Administration Budesonide 0.5 mg 05/02/19 20:00 05/07/19 07:54 Pulmicort IH 0.5 mg Q12HRT [facility] Administration Calcitriol 0.25 mcg 05/02/19 10:00 05/07/19 09:47 Rocaltrol PO Not Given QDAY [facility] Calcium Carbonate/Glycine 1,250 mg 05/02/19 10:00 05/07/19 09:47 Oscal PO Not Given QDAY [facility] Docusate Sodium 100 mg 05/02/19 05:35 Colace PO BID PRN Constipation Famotidine 10 mg 05/02/19 03:00 05/07/19 09:43 Pepcid IV 10 mg BID ANAI Administration Ferrous Sulfate 325 mg 05/02/19 10:00 05/07/19 09:47 Feosol PO Not Given QDAY [facility] Hydromorphone HCl 0.5 mg 05/02/19 02:12 Dilaudid IV Q3H PRN Pain , Severe (7-10) Hyoscyamine 0.125 mg 05/02/19 06:00 05/07/19 09:48 Levsin Sl SL Not Given Q4H [facility] Sodium Chloride 1,000 mls @ 50 mls/hr 05/07/19 12:00 Nacl 0.9% 1000 Ml IV DIRECT [facility] Cefazolin Sodium 2 gm in 20 mls @ 80 mls/hr 05/07/19 11:00 Ancef/Sterile Water 2 Gm/20 Ml IV 05/07/19 23:00 PREOP NR Protocol Lorazepam 0.5 mg 05/02/19 05:35 Ativan PO Q4H PRN Anxiety Metoclopramide HCl 5 mg 05/02/19 02:15 Reglan IV Q6H PRN Nausea And Vomiting Mirtazapine 15 mg 05/02/19 22:00 05/07/19 04:54 Remeron PO Not Given QHS [facility] Ondansetron HCl 4 mg 05/02/19 02:04 05/03/19 22:13 Zofran IV 4 mg Q8H PRN Administration Nausea And Vomiting Sertraline HCl 25 mg 05/02/19 10:00 05/07/19 09:47 Zoloft PO Not Given QDAY [facility] Simple Syrup 15 ml 05/04/19 13:53 Simple Syrup FEEDTUBE PRN PRN Hypoglycemia Simple Syrup 30 ml 05/04/19 13:53 Simple Syrup FEEDTUBE PRN PRN Hypoglycemia Sodium Bicarbonate 325 mg 05/04/19 13:53 Sodium Bicarbonate FEEDTUBE PRN PRN For Clogged Feeding Tube Sodium Chloride 10 ml 05/02/19 10:00 05/07/19 09:47 Sodium Chloride Flush Syringe 10 Ml IV 10 ml BID ANAI Administration Sodium Chloride 10 ml 05/02/19 02:04 Sodium Chloride Flush Syringe 10 Ml IV PRN PRN LINE FLUSH Nutrition/Malnutrition Assess - Dietary Evaluation Nutrition/Malnutrition Findings: Nutrition Notes Start: 05/02/19 14:42 Freq: Status: Active Protocol: Document 05/06/19 13:10 RM (Rec: 05/06/19 13:18 RM [email or web address]) Nutrition Notes Initial or Follow up Reassessment Current Diagnosis Acute Kidney Injury, Hypertension,Hyperlipidemia Other Pertinent Diagnosis Dementia, Nonverbal, Constipation, Dysphagia, IBS Current Diet Jevity 1.2 at 50 ml/hr Labs/Tests Na 141 K 4.4 Pertinent Medications Zofran Height 5 ft 2 in Weight 64.3 kg [place] Body Weight (kg) 50.00 BMI 25.9 Subjective/Other Information Observed Jevity infusing at goal rate. Per nurse pt tolerating TF. Percent of energy/protein needs met: 100%/87% Burn Absent Trauma Absent #1 Nutrition Diagnosis Malnutrition Diagnosis Progress(for reassessment Continues documentation) Is patient on ventilator? No Is Patient Ambulatory and/or Out of Bed No REE-([place]-confined to bed) 1292.316 Kcal/Kg value to use for calculation 21 Approximate Energy Requirements Using 1350 kcal/Kg Calculation Used for Recommendations Kcal/kg Additional Notes Protein Needs: 77-96g (1.2-1. 5g/kg) Fluid Needs: 1 ml/kcal Nutrition Intervention Nutrition Support: Jevity 1.2 at 50 ml/hr Water flush of 100 mls q 4 hrs Kcal 1,440 Protein (gm) 67 Fluid (mL) 968 Goal #1 TF tolerance Goal #2 Continue to meet at least 75% of calorie and protein needs via TF Anticipated Discharge Needs: Unable to determine at this time Follow-Up By: 05/13/19 Additional Comments Follow for tolerance
--- NOTE | 2019-05-07 15:41 | Operative Report ---
PROCEDURE: EGD with PEG tube placement. INDICATIONS: 1. Weight loss. 2. Dysphagia. MEDICATIONS: Propofol per [employer]. COMPLICATIONS: None. DESCRIPTION OF PROCEDURE: The patient was brought to the procedure suite. The patient was placed in the supine position. Mouth block placed in the patient's oral cavity. After adequate sedation medication as above, endoscope placed in the mouth and brought to the level of the second portion of duodenum. Retroflexion view was performed. The patient's vital signs remained stable throughout the procedure. FINDINGS: There was a medium hiatal hernia at GE junction 38 cm from the gums. Esophagus otherwise appeared to be normal. Mild gastritis noted in the stomach. Stomach otherwise appeared to be normal. The duodenum appeared to be normal. Retroflexion view performed in the stomach showed no other pathology other than noted above. After this inspection using standard technique and transillumination, an area for adequate placement of the PEG tube was found in the gastric body. Using standard technique, a 20-[place] pull PEG was then placed. Bump was noted to be at 4.5 cm. Post-procedure appearance was satisfactory. The patient tolerated the procedure well. No complications during the procedure. IMPRESSION: 1. Hiatal hernia. 2. Gastritis. 3. Otherwise normal EGD. 4. PEG tube placed without obvious complications. RECOMMENDATIONS: 1. Basic PEG tube orders, see chart. 2. Watch for signs of bleeding or infection. 3. We will follow up in a.m. JOB# [id number] [facility]/NTS
--- NOTE | 2019-05-07 20:10 | Consultation ---
REFERRING PHYSICIAN: Malaika Badillo MD INDICATIONS: 1. Dysphagia. 2. Weight loss. HISTORY OF PRESENT ILLNESS: The patient is a 78-year-old female being seen by GI for possible PEG tube placement. The patient was admitted on 05/01/2019 for general weakness and failure to thrive. During her hospital stay since that time, the patient has progressive weight loss and poor p.o. intake. GI is now consulted for PEG tube placement to help with her management. The patient denies any other specific GI complaints including nausea, vomiting, heartburn, reflux, indigestion, diarrhea, constipation or rectal bleeding. No other specific complaints. PAST MEDICAL HISTORY: 1. Hypertension. 2. Asthma. 3. Major depression. 4. High cholesterol. 5. Vascular dementia. ALLERGIES: No known drug allergies. MEDICATIONS: Reviewed and updated in chart. SOCIAL HISTORY: Lives in a retirement. FAMILY HISTORY: Negative for colon cancer, IBD, or liver disease. REVIEW OF SYSTEMS: GENERAL: Reports weakness. HEENT: No visual complaints or tinnitus. PULMONARY: No shortness of breath, cough or chest pain. GASTROINTESTINAL: Reports no specific complaints. All points of 13-point review of systems were otherwise negative. PHYSICAL EXAMINATION: VITAL SIGNS: Temperature of 99.0, pulse 94, respirations 20, blood pressure 115/64. GENERAL: Fairly weak appearing female, in no acute distress. HEENT: Pupils equal, round and reactive. PULMONARY: Clear. CARDIOVASCULAR: Regular rhythm. Normal S1, S2. ABDOMEN: Positive bowel sounds, soft. SKIN: No obvious rashes. LABORATORY DATA: Pertinent for white count of 7.7, hemoglobin and hematocrit of 9.6 and 29.9, platelet count of 126. Coags within normal limits. Chem-7 within normal limits. LFTs within normal limits. ASSESSMENT: A 78-year-old female with past medical history noted above, now with failure to thrive, weakness and oropharyngeal dysphagia, now for PEG tube placement. PLAN: 1. N.p.o. after midnight. 2. Coags in the morning. 3. Avoid NSAIDs and aspirin. 4. Plan EGD with PEG tube placement in a.m. JOB# [id number] [facility]/NTS
[2019-05-08] MEDS: REMERON PO SCH (00:03)
[2019-05-08 06:08] LABS: Albumin 2.4 g/dL (3.9-5); Calcium 8.1 mg/dL (8.4-10.2)
--- NOTE | 2019-05-08 08:07 | Discharge Summary ---
Providers - Providers Date of Admission: 05/01/19 16:39 Attending physician: JESSENIA GRIFFITH MD 05/01/19 23:29 Consult to Dietitian/Nutrition [CONS] Routine Physician Instructions: Reason For Exam: post-peg Reason for Consult: Pt will be getting a peg tube. 05/02/19 05:48 Consult to Physician [CONS] Routine Comment: called office/ anastacia Consulting Provider: JEANE ROJO Physician Instructions: Reason For Exam: DAWN 05/06/19 17:17 Consult to Physician [CONS] Routine Comment: dr. bhatia spoke with the doctor/ anastacia Consulting Provider: LUIS OSORIO Physician Instructions: Reason For Exam: Peg tube placement--Family wants PEG done 05/07/19 18:50 Consult to Dietitian/Nutrition [CONS] Routine Physician Instructions: Assess nutrtn needs, initiate, modify, manage TF Reason For Exam: Reason for Consult: Write/Manage Tube Feeding Reason for Consult: Write/Manage Tube Feeding Primary care physician: AMINA CROWE Hospitalization Condition: Stable Hospital course: 78-year-old woman with vascular dementia who was sent from assisted for elective PEG tube placement. She was found to have low potassium, 2.7 and markedly elevated sodium 166. Procedure was aborted, patient was medically treated. When her laboratory findings improved, PEG tube was placed on 05/07 - Acute kidney injury:dehydration Vasomotor nephropathy, resolved with IVF -Hypernatremia: - imrpoving resolved with IVF - Hypokalemia repleted - Advanced dementia Fall precautions Optimize nursing care - Constipation Colace and lactulose - Severe Oropharyngeal dysphagia sp PEG tube on 05/07 - Adult failure to thrive: sp PEG tube placement. Severe Malnutrition Dietitian already consult appreciated, tube feeding - Irritable bowel syndrome Continue Levsin - Depression Continue with sertraline -DVT prophylaxis and GI with Pepcid With heparin Disposition: DC/[place]-03 [facility] Time spent for discharge: 33 mins Core Measure Documentation - Palliative Care Palliative Care/ Comfort Measures: Not Applicable - Core Measures Any of the following diagnoses?: none Exam - Physical Exam Narrative exam: General.: Cachectic, in no distress HEENT: Moist mucous membranes, extraocular muscles intact, no lymphadenopathy Neck: supple Cardiac: S1-S2 heard Lungs: clear to auscultation bilaterally Abdomen: soft , nontender, nondistended, bowel sounds positive Extremities: no edema clubbing or cyanosis Skin: no rash or lesions Neurologic: Dementia, nonverbal, does not obey commands Psych: calm, not agitated - Constitutional Vitals: Temp Pulse Resp BP Pulse Ox 97.8 F 120 H 18 121/51 100 05/08/19 00:46 05/08/19 00:46 05/08/19 00:46 05/08/19 00:46 05/08/19 00:46 Plan Health Concerns: Dobhoff must be discontinued in 7 days or as soon as PEG placed, which ever comes first Follow up with: TUAN SANTANA MD [Staff Physician] - 3 Days AMINA CROWE MD [Primary Care Provider] - 3-5 Days
[2019-05-08] MEDS: BROVANA NEBU IH SCH (08:50)
[2019-05-08] MEDS: PULMICORT IH SCH (08:50)
[2019-05-08] MEDS: ZOLOFT PO SCH (09:35)
[2019-05-08] MEDS: PEPCID IV SCH (09:35)
[2019-05-08] MEDS: FEOSOL PO SCH (09:35)
[2019-05-08] MEDS: ROCALTROL PO SCH (09:35)
[2019-05-08] MEDS: OSCAL PO SCH (09:36)
[2019-05-08] MEDS: SODIUM CHLORIDE FLUSH SYRINGE 10 ML IV SCH (09:36)
[2019-05-08] MEDS: LEVSIN SL SL SCH (09:36)
[2019-05-08 12:40] VITALS: BP 107/50
--- NOTE | 2019-05-08 17:19 | Gastroenterology Progress Note ---
Assessment and Plan GI: s/peg w/o obvious complications - ok to use peg as needed - ok to d/c from GI standpoint - call if needed Subjective Date of service: 05/08/19 Principal diagnosis: acute renal failure, failure to thrive from senna debility, hypokalemia Interval history: - no GI complaints overnight Objective - Constitutional Vitals: Temp Pulse Resp BP Pulse Ox 98.6 F 91 H 20 107/50 97 05/08/19 12:37 05/08/19 12:37 05/08/19 12:37 05/08/19 12:37 05/08/19 12:37 General appearance: no acute distress - EENT Eyes: PERRL - Respiratory Respiratory: bilateral: CTA - Cardiovascular Rhythm: regular Heart Sounds: Present: S1 & S2 - Gastrointestinal General gastrointestinal: Present: soft, non-tender, non-distended (peg site intact) - Labs CBC & Chem 7: 05/07/19 04:33 05/08/19 04:45 Labs: Laboratory Results - last 24 hr 05/08/19 05/08/19 05/08/19 00:51 04:45 05:44 Sodium 141 Potassium 3.7 Chloride 101.2 Carbon Dioxide 23 Anion Gap 21 BUN 11 Creatinine 1.1 Estimated GFR 58 BUN/Creatinine Ratio 10 Glucose 104 H POC Glucose 135 H 111 H Calcium 8.1 L Total Bilirubin 0.60 AST 30 ALT 20 Alkaline Phosphatase 169 H Total Protein 7.2 Albumin 2.4 L Albumin/Globulin Ratio 0.5 05/08/19 11:55 Sodium Potassium Chloride Carbon Dioxide Anion Gap BUN Creatinine Estimated GFR BUN/Creatinine Ratio Glucose POC Glucose 130 H Calcium Total Bilirubin AST ALT Alkaline Phosphatase Total Protein Albumin Albumin/Globulin Ratio
== END 2019-05-08 14:26 | DRG 393 ==
LOC: ED 12:55 → GIO 12:55 → 2B-ACE 16:39 → EDSTATUS 18:00
PROVIDERS: ADMIT Internal Medicine; ATTEND Internal Medicine
PROC: 3E0234Z Introduction of Serum, Toxoid and Vaccine into Muscle, Percutaneous Approach (ICD-10-PCS; 2019-05-02)
PROC: 0DH63UZ Insertion of Feeding Device into Stomach, Percutaneous Approach (ICD-10-PCS; principal; 2019-05-07)
DX: Z43.1 Encounter for attention to gastrostomy (principal); N17.0 Acute kidney failure with tubular necrosis; E43 Unspecified severe protein-calorie malnutrition; E87.0 Hyperosmolality and hypernatremia; R13.12 Dysphagia, oropharyngeal phase; E86.0 Dehydration; J45.909 Unspecified asthma, uncomplicated; F32.9 Major depressive disorder, single episode, unspecified; G30.9 Alzheimer's disease, unspecified; I10 Essential (primary) hypertension; F02.80 Dementia in other diseases classified elsewhere, unspecified severity, without behavioral disturbance, psychotic disturbance, mood disturbance, and anxiety; K44.9 Diaphragmatic hernia without obstruction or gangrene; K29.70 Gastritis, unspecified, without bleeding; E87.6 Hypokalemia; K58.1 Irritable bowel syndrome with constipation; Z66 Do not resuscitate; Z53.8 Procedure and treatment not carried out for other reasons; D64.9 Anemia, unspecified; M19.90 Unspecified osteoarthritis, unspecified site; Z88.0 Allergy status to penicillin; Z68.25 Body mass index [BMI] 25.0-25.9, adult; Z79.899 Other long term (current) drug therapy; Z82.49 Family history of ischemic heart disease and other diseases of the circulatory system; Z23 Encounter for immunization
CPT/HCPCS: 36415; 74018; 76770; 80048; 80053; 81001; 82570; 82803; 82962; 83735; 84100; 84300; 85025; 85610; 85730; 90732; 94640; G0378; J0690; J1580; J1644; J2405; J2704; J3480; J7030; J7050; J7070